=== PATIENT | male | born 1940 | race Caucasian/White ===

== ENCOUNTER 2019-12-15 08:21 | Inpatient (IN) | payer MEDICARE ==
[~2019-12-15] VITALS: Ht 185.4 cm; Wt 101.3 kg
[~2019-12-15 08:21] MED LIST: ALLO100 PO; ASPI81EC PO; ATOR20 PO; FERSU300 PO; LANOXIN125 MCG PO; LOSA25 PO; METO50ER PO; RANI150 PO; WARF4 PO
[2019-12-15 09:06] LABS: BASOPHILS ABSOLUTE AUTO 0.14 K/mm3 (0.00-0.23); BASOPHILS PERCENT AUTO 1 % (0-2); EOSINOPHILS ABSOLUTE AUTO 0.05 K/mm3 (0.00-0.68); EOSINOPHILS PERCENT AUTO 1 % (0-6); Hematocrit 38.1 % (37.0-53.0); Hemoglobin 12.2 g/dL (13.5-17.5); IMMATURE GRAN ABSOLUTE AUTO 0.17 K/mm3 (0.00-0.10); IMMATURE GRAN PERCENT AUTO 2 % (0-1); LYMPHOCYTES ABSOLUTE AUTO 1.22 K/mm3 (0.84-5.20); LYMPHOCYTES PERCENT AUTO 12 % (21-46); MONOCYTES ABSOLUTE AUTO 1.84 K/mm3 (0.16-1.47); MONOCYTES PERCENT AUTO 18 % (4-13); Mean Corpuscular HGB 29.3 pg (26.0-34.0); Mean Corpuscular Volume 92 fL (80-100); Mean Platelet Volume 9.9 fL (9.1-12.4); NEUTROPHILS ABSOLUTE AUTO 6.63 K/mm3 (1.96-9.15); NEUTROPHILS PERCENT AUTO 66 % (41-73); Platelet Count 125 K/mm3 (150-400); RDW Coefficient Variation 18.1 % (11.7-14.2); RDW Standard Deviation 59.5 fL (35.1-46.3); Red Blood Cell Count 4.16 M/mm3 (4.30-5.90); White Blood Cell Count 10.05 K/mm3 (4.00-11.30)
[2019-12-15 09:24] LABS: Alanine Aminotransfer (ALT/SGP 29 U/L (12-78); Albumin, Blood 3.3 g/dL (3.4-5.0); Albumin/Globulin Ratio 0.7 (0.8-1.8); Alk Phos 142 U/L (50-136); Anion Gap 5 mmol/L (6-16); Aspartate Aminotrans (AST/SGOT 28 U/L (12-37); Bilirubin, Total 1.6 mg/dL (0.1-1.0); Blood Urea Nitrogen 15 mg/dL (8-24); Bun/Creatinine Ratio 16.4 (12.0-20.0); CO2, Blood 27 mmol/L (21-32); Calcium, Blood 9.8 mg/dL (8.5-10.1); Chloride, Blood 106 mmol/L (98-108); Creatinine, Blood 0.91 mg/dL (0.60-1.20); Globulin, Blood 4.8 g/dL (2.2-4.0); Glomerular Filtration Rate >60 (60-); Glucose, Blood 155 mg/dL (70-99); Potassium, Blood 3.8 mmol/L (3.5-5.5); Sodium, Blood 138 mmol/L (136-145); Total Protein, Blood 8.1 g/dL (6.4-8.2)
[2019-12-15 09:33] LABS: International Normalized Ratio 3.28; Prothrombin Time Results 32.8 Sec (9.7-11.5)
[2019-12-15] MEDS ORDERED: ALLO300 PO (12:11)
[2019-12-15] MEDS ORDERED: PANTOPRAZOLE SO40 M2 PO (12:11)
[2019-12-15] MEDS ORDERED: WARF4 PO (12:13)
[2019-12-15 12:14] LABS: Adenovirus Not Detected (NOT DETECT); Bordetella pertussis Not Detected (NOT DETECT); Chlamydophila pneumoniae Not Detected (NOT DETECT); Coronavirus 229E Not Detected (NOT DETECT); Coronavirus HKU1 Not Detected (NOT DETECT); Coronavirus NL63 Not Detected (NOT DETECT); Coronavirus OC43 Not Detected (NOT DETECT); Human Metapneumovirus Not Detected (NOT DETECT); Human Rhinovirus/Enterovirus Not Detected (NOT DETECT); Influenza A/2009-H1 Not Detected (NOT DETECT); Influenza A/H1 Not Detected (NOT DETECT); Influenza A/H3 Not Detected (NOT DETECT); Influenza B Not Detected (NOT DETECT); Mycoplasma pneumoniae Not Detected (NOT DETECT); Parainfluenza Virus 1 Not Detected (NOT DETECT); Parainfluenza Virus 2 Not Detected (NOT DETECT); Parainfluenza Virus 3 Not Detected (NOT DETECT); Parainfluenza Virus 4 Not Detected (NOT DETECT); Respiratory Syncytial Virus Not Detected (NOT DETECT); SARS-Cov-2 (COVID-19), BioFire Not Detected (NOT DETECT)
[2019-12-15] MEDS ORDERED: METO50ER PO (13:50)
[2019-12-15] MEDS ORDERED: VITAMIN C 500500 MG PO (13:52)
--- NOTE | 2019-12-15 14:08 | NUR ---
PT ARRIVED IN THE UNIT FROM [facility] VIA STRETCHER PT WAS ABLE TO STAND AND TRANSFER. REPORT RECEIVED FROM CONNOR MCKENNA. PT IS HERE D/T HEMOPTYSIS WITH COUGH. PT ALERT AND ORIENTED X4, PLEASANT AND COOPERATIVE. VITALS HRR 100% PACED VENTRICULAR RHYTHM 65, BP SYSTOLIC 125, SATS ABOVE 95% ON 5L OF O2, AFEBRILE. PT IN BED RESTING AT THIS TIME, DENIES ANY PAIN, CURRENTLY NPO. CALL LIGHTS WITHIN REACH, WILL MONITOR
--- NOTE | 2019-12-15 17:57 | NUR ---
PT SUMMARY: VITALS REMAINED STABLE. PULMO CONSULT CALLED IN TO DR SHAW TODAY. PER DR JENSEN PT FOR POSS BRONCHOSCOPY IN AM, NPO AT MIDNIGHT. PT RECEIVED FLU SHOT ON LEFT DELTOID. PT STILL HAS BLOOD IN THE SPUTUM SAMPLE SENT TO LAB. NO ACUTE CHANGE. ON 5L OF O2 SATS REMAINED ABOVE 95%. ABLE TO MAKE NEEDS KNOWN. CALL LIGHTS IN REACH WILL REPORT TO ONCOMING SHIFT
[2019-12-16 00:15] LABS: Source, Urine Clean Catch
[2019-12-16 00:17] LABS: Bilirubin, Urine Neg (Neg); Blood, Urine 1+ (Neg); Glucose Qualitative, Urine Neg (Neg); Ketones, Urine Neg (Neg); Leukocyte Esterase, Urine 1+ (Neg); Nitrite, Urine Neg (Neg); Protein, Urine 2+ (Neg); Urobilinogen, Urine NORM (Normal)
[2019-12-16 00:35] LABS: Appearance, Urine Clear (Clear); Bacteria Not Seen /hpf; Color, Urine Yellow (P-Yellow); Red Blood Cells, Urine 0-2 /hpf (0-2); Squamous Epithelial Cells Not Seen /hpf (Few); White Blood Cells, Urine Rare /hpf (0-5)
[2019-12-16 04:31] LABS: BASOPHILS ABSOLUTE AUTO 0.02 K/mm3 (0.00-0.23); BASOPHILS PERCENT AUTO 0 % (0-2); EOSINOPHILS PERCENT AUTO 0 % (0-6); Hematocrit 36.2 % (37.0-53.0); Hemoglobin 11.7 g/dL (13.5-17.5); IMMATURE GRAN ABSOLUTE AUTO 0.08 K/mm3 (0.00-0.10); IMMATURE GRAN PERCENT AUTO 1 % (0-1); LYMPHOCYTES ABSOLUTE AUTO 0.61 K/mm3 (0.84-5.20); LYMPHOCYTES PERCENT AUTO 7 % (21-46); MONOCYTES ABSOLUTE AUTO 0.39 K/mm3 (0.16-1.47); MONOCYTES PERCENT AUTO 4 % (4-13); Mean Corpuscular HGB 29.8 pg (26.0-34.0); Mean Corpuscular HGB Conc 32.3 g/dL (31.5-36.5); Mean Corpuscular Volume 92 fL (80-100); Mean Platelet Volume 10.5 fL (9.1-12.4); NEUTROPHILS ABSOLUTE AUTO 7.68 K/mm3 (1.96-9.15); NEUTROPHILS PERCENT AUTO 88 % (41-73); Platelet Count 111 K/mm3 (150-400); RDW Coefficient Variation 18.1 % (11.7-14.2); RDW Standard Deviation 59.5 fL (35.1-46.3); Red Blood Cell Count 3.93 M/mm3 (4.30-5.90); White Blood Cell Count 8.78 K/mm3 (4.00-11.30)
[2019-12-16 04:52] LABS: Anion Gap 6 mmol/L (6-16); Blood Urea Nitrogen 21 mg/dL (8-24); Bun/Creatinine Ratio 24.4 (12.0-20.0); CO2, Blood 26 mmol/L (21-32); Calcium, Blood 9.7 mg/dL (8.5-10.1); Chloride, Blood 106 mmol/L (98-108); Creatinine, Blood 0.86 mg/dL (0.60-1.20); Glomerular Filtration Rate >60 (60-); Glucose, Blood 158 mg/dL (70-99); Potassium, Blood 4.7 mmol/L (3.5-5.5); Sodium, Blood 138 mmol/L (136-145)
--- NOTE | 2019-12-16 05:40 | NUR ---
SHIFT SUMMARY NO ACUTE CHANGES THIS SHIFT. PT A&OX4, PLEASANT AND COOPERATIVE. SP02 >92% ON 5L NC. OCCASIONAL COUGH, PRODUCING MODERATE AMOUNTS OF CLEAR/WHITE SPUTUM TINGED WITH PINK. TELEMETRY READS 100% VENTRICULARLY PACED, HR 60'S. DR SHAW IN TO SEE PT APPROX 1999, ORDERED ECHO IN AM, CHANGING PT FROM NPO TO REGULAR DIET. ANTIBIOTICS INFUSED PER EMAR. CALL LIGHT WITHIN REACH. WILL CONTINUE TO MONITOR UNTIL END OF SHIFT.
--- NOTE | 2019-12-16 08:00 | NUR ---
pt laying in bed awake a/ox3, pleasant and cooperative with care, states he is feeling better, is currently on 5 liters 02 via n/c, resp even and unlabored, no cough noted, he reports the hemoptosis is much less than it was, denies pain, or sob at rest, lungs are clear in upper judge, a bit course in bases, hrr, tele in placed is vpaced with sr underlying, no edema noted, ppp+2, cap refill <3sec, vs stable, afebrile, iv site is clear and patent, btx4, abd flat soft nontender, voids without diff, skin c/w/d, maew, river, call light in reach.
--- NOTE | 2019-12-16 09:55 | NUR ---
ambulated pt per request, took him on r/a with 02 available, he dropped to 82% turned him up to 6 liters to recover, took a while for him to come back up, he states he only got a littel sob. notified RT, left [facility] [place] to call nurse. son in room. call light in reach.
--- NOTE | 2019-12-16 12:48 | NUR ---
pt resting in bed is currently on 3 liters 02 via n/c, echo just complete. Dr. Watson was in to see him. call light in reach.
--- NOTE | 2019-12-16 15:13 | NUR ---
Echocardiogram performed by Yadi Mobley under my supervision.
--- NOTE | 2019-12-16 17:28 | NUR ---
PT CONTINUES ON 3 LITERS 02 VIA N/C AT REST, NO COMPLAINTS OR FURTHER CHANGES THIS SHIFT. CALL LIGHT IN REACH.
[2019-12-17 04:35] LABS: BASOPHILS ABSOLUTE AUTO 0.03 K/mm3 (0.00-0.23); BASOPHILS PERCENT AUTO 0 % (0-2); EOSINOPHILS ABSOLUTE AUTO 0.01 K/mm3 (0.00-0.68); EOSINOPHILS PERCENT AUTO 0 % (0-6); Hematocrit 37.8 % (37.0-53.0); IMMATURE GRAN ABSOLUTE AUTO 0.23 K/mm3 (0.00-0.10); IMMATURE GRAN PERCENT AUTO 1 % (0-1); LYMPHOCYTES ABSOLUTE AUTO 0.68 K/mm3 (0.84-5.20); LYMPHOCYTES PERCENT AUTO 4 % (21-46); MONOCYTES ABSOLUTE AUTO 3.52 K/mm3 (0.16-1.47); MONOCYTES PERCENT AUTO 22 % (4-13); Mean Corpuscular HGB 29.6 pg (26.0-34.0); Mean Corpuscular HGB Conc 31.7 g/dL (31.5-36.5); Mean Corpuscular Volume 93 fL (80-100); Mean Platelet Volume 10.3 fL (9.1-12.4); NEUTROPHILS PERCENT AUTO 72 % (41-73); Platelet Count 139 K/mm3 (150-400); RDW Coefficient Variation 18.6 % (11.7-14.2); RDW Standard Deviation 61.1 fL (35.1-46.3); Red Blood Cell Count 4.06 M/mm3 (4.30-5.90); White Blood Cell Count 16.17 K/mm3 (4.00-11.30)
[2019-12-17 04:47] LABS: Anion Gap 6 mmol/L (6-16); Blood Urea Nitrogen 28 mg/dL (8-24); Bun/Creatinine Ratio 32.1 (12.0-20.0); CO2, Blood 26 mmol/L (21-32); Calcium, Blood 9.9 mg/dL (8.5-10.1); Chloride, Blood 108 mmol/L (98-108); Creatinine, Blood 0.87 mg/dL (0.60-1.20); Glomerular Filtration Rate >60 (60-); Glucose, Blood 114 mg/dL (70-99); Phosphorus, Blood 3.5 mg/dL (2.5-4.9); Potassium, Blood 4.8 mmol/L (3.5-5.5); Sodium, Blood 140 mmol/L (136-145)
--- NOTE | 2019-12-17 06:26 | NUR ---
SHIFT SUMMARY PT IS AN 79 Y/O MALE, ADMITTED FOR HEMOPTYSIS. HE IS A&O X 4, 1PA TO THE BATHROOM PER REPORT THOUGH PT DID NOT GET OUT OF BED. NO COMPLAINTS OF ACUTE PAIN, NAUSEA OR SOB. HE IS ON 4L OF O2 VIA NC, AND TENDS TO DESAT WHILE ASLEEP. TELE SHOWED NSR C PVCS IN THE 70S. VITAL SIGNS OTHERWISE STABLE. NO ACUTE CHANGES IN PT CONDITION NOTED. WILL CONTINUE TO MONITOR AND TREAT PER EMAR UNTIL HAND OFF TO DAY SHIFT RN.
--- NOTE | 2019-12-17 09:16 | NUR ---
PT DOING WELL, HE STATES HE HAD A GOOD NIGHT, NO COMPLAINTS, HE DID REPORT HE COUGHT UP BLOOD TWICE EARLY THIS AM, BUT IS FEELING GOOD. V.S. STABLE, ATE BREAKFAST, LUNGS ARE CLEAR IN UPPER WOODY, A BIT COURSE IN BASES, RESP EVEN AND UNLABORED AT REST, HE DID GET UP TO THE BATHROOM AND DESATED TO 79% BUT IS NOT REPORTING FEELING SOB, TURNED HIM UP TO 10 LITERS, AND CALLED FOR RT TO GIVE TX. HE DID RECOVER AND WAS ABLE TO TURN HIM BACK TO 5 LITERS BEFORE I LEFT ROOM, HRR, TELE IN PLACE RUNNING PACED, NO EDEMA NOTED, IV SITE IS CLEAR AND PATENT, BTX4, ABD FLAT SOFT NONTENDER, VOIDS WITHOUT DIFF, SKIN C/W/D, LASHONDA GUPTA, CALL LIGHT IN REACH.
--- NOTE | 2019-12-17 19:05 | NUR ---
pt doing ok, no complaints, Dr. Boswell in to see him. will be here for a few more days. remains above 90 on 5 liters. call light in reach.
--- NOTE | 2019-12-17 19:45 | NUR ---
INITAL SHIFT ASSESSMENT PT IS ALERT AND ORIENTED SITTING UP IN BED. HE HAS NO COMPLAINTS AND DENIES ANY TYPE OF PAIN. HE IS NOT SOB AT REST WITH 5L N/C RUNNING. HE DOES STATE WITH ACTIVITY HE IS VERY SOB AND TAKES SOME TIME TO RECOVER. DRY COUGH WITH MINIMAL PRODUCTION NOTED AT THIS TIME. VITALS ARE STABLE AT THIS TIME. PT HAS A PATENT IV TO LEFT FA. WILL ADMINISTER MEDICATIONS ORDERED SEE EMAR. PT IS USING URINAL AND WILL CALL NEEDED FOR ASSISTANCE. OVERALL VERY PLESANT AND COOPERATIVE WITH HIS CARE.
--- NOTE | 2019-12-17 23:37 | NUR ---
SHIFT UPDATE PT IS STABLE AT THIS TIME. VITALS ARE AT BASELINE. HE HAS NO COMPLAINTS OR NEEDS AT THIS TIME. CALL LIGHT IN REACH. WILL CON'T TO MONITOR AND KEEP PT SAFE.
[2019-12-18 03:43] LABS: BASOPHILS ABSOLUTE AUTO 0.04 K/mm3 (0.00-0.23); BASOPHILS PERCENT AUTO 1 % (0-2); EOSINOPHILS ABSOLUTE AUTO 0.13 K/mm3 (0.00-0.68); EOSINOPHILS PERCENT AUTO 2 % (0-6); Hematocrit 36.9 % (37.0-53.0); Hemoglobin 11.9 g/dL (13.5-17.5); IMMATURE GRAN ABSOLUTE AUTO 0.19 K/mm3 (0.00-0.10); IMMATURE GRAN PERCENT AUTO 2 % (0-1); LYMPHOCYTES ABSOLUTE AUTO 1.11 K/mm3 (0.84-5.20); LYMPHOCYTES PERCENT AUTO 13 % (21-46); MONOCYTES ABSOLUTE AUTO 1.79 K/mm3 (0.16-1.47); MONOCYTES PERCENT AUTO 21 % (4-13); Mean Corpuscular HGB 29.8 pg (26.0-34.0); Mean Corpuscular HGB Conc 32.2 g/dL (31.5-36.5); Mean Corpuscular Volume 92 fL (80-100); Mean Platelet Volume 9.8 fL (9.1-12.4); NEUTROPHILS ABSOLUTE AUTO 5.48 K/mm3 (1.96-9.15); NEUTROPHILS PERCENT AUTO 63 % (41-73); Platelet Count 128 K/mm3 (150-400); RDW Coefficient Variation 18.6 % (11.7-14.2); RDW Standard Deviation 60.5 fL (35.1-46.3); White Blood Cell Count 8.74 K/mm3 (4.00-11.30)
[2019-12-18 03:58] LABS: Albumin, Blood 2.8 g/dL (3.4-5.0); Anion Gap 2 mmol/L (6-16); Blood Urea Nitrogen 27 mg/dL (8-24); Bun/Creatinine Ratio 32.9 (12.0-20.0); CO2, Blood 28 mmol/L (21-32); Calcium, Blood 9.1 mg/dL (8.5-10.1); Chloride, Blood 108 mmol/L (98-108); Creatinine, Blood 0.82 mg/dL (0.60-1.20); Glomerular Filtration Rate >60 (60-); Glucose, Blood 97 mg/dL (70-99); Magnesium, Blood 1.9 mg/dL (1.6-2.4); Phosphorus, Blood 2.9 mg/dL (2.5-4.9); Potassium, Blood 4.3 mmol/L (3.5-5.5); Sodium, Blood 138 mmol/L (136-145)
--- NOTE | 2019-12-18 05:26 | NUR ---
SHIFT SUMMARY PT CON'T TO BE STABLE WITH NO CHANGES FROM BASELINE. HE IS ALERT AND ORIENTED THIS AM AND SLEEPING OFF AND ON. PT CON'T TO HAVE OXYGEN AT 5L N/C. HE HAS NO COMPLAINTS THIS AM. VITALS ARE STABLE. CALL LIGHT IN REACH. WILL CON'T TO MONITOR AND KEEP PT SAFE TILL BED SIDE REPORT TO ONCOMING RN.
--- NOTE | 2019-12-18 08:47 | NUR ---
PT LAYING IN BED WATCHING TV, A/OX3, PLEASANT AND COOPERATIVE WITH CARE, FOLLOWS COMMANDS WELL, DENIES PAIN OR SOB, REPORTS HAVING A GOOD NIGHT, LUNGS ARE CLEAR IN UPPER WOODY, A BIT COURSE IN BASES, RESP EVEN AND UNLABORED, AT REST, NO COUGH NOTED, BUT HE REPORTS A FEW TIMES DURRING THE NIGHT HE BROUGHT UP A SMALL AMOUNT OF BLOOD, IS CURRENTLY ON 5 LITERS, NEEDS TO INCREASE THIS WHEN AMBULATING, HRR, TELE IN PLACE RUNNING A PACED RHYTHM IN THE 60'S, NO EDEMA NOTED, PPP+2, CAP REFILL <3SEC, VS STABLE, AFEBRILE, IV SITE IS CLEAR AND PATENT, BTX4, ABD FLAT SOFT NONTENDER, VOIDS WITHOUT DIFF VIA URINAL, SKIN C/W/D, LASHONDA GUPTA CALL LIGHT IN REACH.
--- NOTE | 2019-12-18 12:30 | NUR ---
PT DOING OK, NO COMPLAINTS, SLEEPS WHEN LEFT UNDISTURBED, NO COMPLAINTS, V.S. STABLE, AFEBRILE, CALL LIGHT IN REACH.
--- NOTE | 2019-12-18 17:39 | NUR ---
pt some improved from yesterday, continues to desat with activity, but is recovering faster, denies any complaints or needs. call light in reach.
[2019-12-19 03:43] LABS: BASOPHILS ABSOLUTE AUTO 0.09 K/mm3 (0.00-0.23); BASOPHILS PERCENT AUTO 1 % (0-2); EOSINOPHILS ABSOLUTE AUTO 0.25 K/mm3 (0.00-0.68); EOSINOPHILS PERCENT AUTO 3 % (0-6); Hematocrit 37.2 % (37.0-53.0); Hemoglobin 12.1 g/dL (13.5-17.5); IMMATURE GRAN ABSOLUTE AUTO 0.33 K/mm3 (0.00-0.10); IMMATURE GRAN PERCENT AUTO 4 % (0-1); LYMPHOCYTES ABSOLUTE AUTO 1.17 K/mm3 (0.84-5.20); LYMPHOCYTES PERCENT AUTO 13 % (21-46); MONOCYTES PERCENT AUTO 19 % (4-13); Mean Corpuscular HGB 29.9 pg (26.0-34.0); Mean Corpuscular HGB Conc 32.5 g/dL (31.5-36.5); Mean Corpuscular Volume 92 fL (80-100); Mean Platelet Volume 9.9 fL (9.1-12.4); NEUTROPHILS PERCENT AUTO 60 % (41-73); Platelet Count 131 K/mm3 (150-400); RDW Coefficient Variation 18.3 % (11.7-14.2); RDW Standard Deviation 60.5 fL (35.1-46.3); Red Blood Cell Count 4.05 M/mm3 (4.30-5.90); White Blood Cell Count 8.84 K/mm3 (4.00-11.30)
[2019-12-19 04:08] LABS: Albumin, Blood 2.7 g/dL (3.4-5.0); Anion Gap 1 mmol/L (6-16); Blood Urea Nitrogen 19 mg/dL (8-24); Bun/Creatinine Ratio 22.8 (12.0-20.0); CO2, Blood 30 mmol/L (21-32); Chloride, Blood 108 mmol/L (98-108); Creatinine, Blood 0.83 mg/dL (0.60-1.20); Glomerular Filtration Rate >60 (60-); Glucose, Blood 101 mg/dL (70-99); Magnesium, Blood 1.9 mg/dL (1.6-2.4); Phosphorus, Blood 2.6 mg/dL (2.5-4.9); Potassium, Blood 4.1 mmol/L (3.5-5.5); Sodium, Blood 139 mmol/L (136-145)
--- NOTE | 2019-12-19 06:11 | NUR ---
SUMMARY NO ACUTE CHANGES NOTED THROUGH THE NIGHT. PT REMAINS A&O X4, O2 @ 5L VIA NC, SPUTUM SAMPLE WAS SENT TO THE LAB. FINE CRACKLES NOTED IN RLL, DENIES SOB/PAIN AT REST, PT IS TOLERATING PO INTAKE, VOIDING WNL. CALL LIGHT IN REACH. WCTM
--- NOTE | 2019-12-19 17:20 | NUR ---
SHIFT SUMMARY: NO ACUTE CHANGES T/OUT SHIFT. PT CONTINUES ALERT AND ORIENTED, PACED ON MONITOR, OXYGEN AT 4.5 L/MIN. PT AMBULATED TO AND FROM RESTROOM WITH NO ACUTE DESATURATION TO OXYGEN LEVELS. DR CHAPIN IN TO SEE PT, STATES STATUS CHANGE TO MEDICAL DEPT. WILL CONTINUE TO MONITOR AND TREAT ACCORDINGLY UNTIL CHANGE OF SHIFT.
--- NOTE | 2019-12-19 19:45 | NUR ---
ASSUMED CARE RECEIVED REPORT FROM BALA BENJAMIN. PT IS LYING IN BED, ALERT AND ORIENTED X 4. HE IS ON 4.5 L NC (WITH HUMIDITY). PT HAS A PACEMAKER AND HAS BEEN VENTRICULAR-PACED (NOT 100%) RATE IS AROUND 61. BED IS LOW AND LOCKED. URINAL AT BEDSIDE. CALL LIGHT WITHIN REACH.
--- NOTE | 2019-12-20 05:54 | NUR ---
SHIFT SUMMARY PT IS ALERT AND ORIENTED X 4. HE SLEPT FOR THE MAJORITY OF THE NIGHT, NO ACUTE EVENTS. HE REMAINS ON 4-5L NC. STABLE VITALS. PACED RHYTHM WITH INTRINSIC BEATS, RATE - 61. HE HAS BEEN INDEPENDENT IN BED, REPOSITIONING SELF. BED LOW AND LOCKED. CALL LIGHT WITHIN REACH.
--- NOTE | 2019-12-20 10:09 | NUR ---
ASSUMED CARE OF PT THIS AM, RECEIVED REPORT FROM BALA JIM. AT REST, PT O2 SATS AT APPROX 94-95% WHILE ON OXYGEN AT 3L/MIN WHICH IS THE GOAL FOR DC HOME. PT TO AND FROM RESTROOM FOR SHOWER WHILE ON 3L/MIN. UPON RETURN TO BED PT DENIES FEELING SOB, BUT O2 SATS DECLINE TO 86% AND ARE SLOW TO RECOVER TO 91%. OXYGEN FLOW WAS INCREASED TO 5L/MIN. DR GARCÍA TO ROOM FOR EVAL AND NOTIFIED OF PT'S OXYGEN SATURATIONS/NEED.
--- NOTE | 2019-12-20 17:24 | NUR ---
SHIFT SUMMARY: NO ACUTE CHANGES TO PT STATUS. PT CONTINUES ON OXYGEN AT 3.5/MIN AT THIS TIME, O2 SATS MAINTAINING 90-92% WHILE AT REST. PT DENIES SOB. PLAN FOR O2 HOME EVAL ON 12/21/19. REPORT HAS BEEN GIVEN TO BALA MORENO TO RECEIVE PT IN MEDICAL DEPT.
--- NOTE | 2019-12-20 19:01 | NUR ---
TRANSFER A&O PATIENT ARRIVED TO MEDICAL UNIT ~1745. SBAR REPORT RECIEVED FROM BALA BENJAMIN AT 1710. VSS. ON 3LNC. LUNG SOUNDS DIMINISHED IN THE BASES, CLEAR OTHERWISE. HAD PRODUCTIVE COUGH WITH SMALL AMOUNT OF E[place]INAS SPUTUM, NO HEMOPTYSIS. S1 S2 HEART TONES ONLY. ZOSYN GIVEN. ALL QUESTIONS ANSWERED AND PATIENT ORIENTED TO UNIT. BED ALARM ON. PT VERBALIZED UNDERSTANDING OF FALL PREVENTION MEASURES. HOME O2 EVAL TOMORROW.
--- NOTE | 2019-12-20 23:40 | NUR ---
RESTING QUIETLY AT INTERVALS. IV ANTIBIOTICS INFUSING PER MD ORDERS - SEE MAR FOR DETAILS. DENIED PAIN. NO NOTED ACUTE DISTRESS. CALL LIGHT INR EACH.
--- NOTE | 2019-12-21 05:41 | NUR ---
SHIFT SUMMARY HAS BEEN RESTING QUIETLY WITH FEW INTERRUPTIONS. IV ANTIBIOTICS INFUSED PER MD ORDERS - SEE MAR FOR DETAILS. DENIED PAIN OR DIETRESS DURING ROUNDINGS. CALL LIGHT IN REACH.
--- NOTE | 2019-12-21 07:38 | NUR ---
CALL LIGHT IN REACH.
[2019-12-21] MEDS ORDERED: ALBU90OI INH (11:49)
[2019-12-21] MEDS ORDERED: AMOCLA875 PO (11:52)
[2019-12-21] MEDS ORDERED: ASPI81CH PO (11:53)
--- NOTE | 2019-12-21 14:36 | NUR ---
DISCHARGE DISCHARGE MEDICATIONS AND INSTRUCTIONS EXPLAINED TO PATIENT AND PATIENT'S SON. THEY STATED UNDERSTANDING. [facility] PROVIDED PORTABLE 02 AND WILL MEET PATIENT AT HOME WITH SUPPLIES. IV REMOVED WITHOUT DIFFICULTY. BELONGINGS WITH PATIENT. PATIENT TRANFERED TO PRIVATE VEHICLE VIA WHEELCHAIR.
== END 2019-12-21 14:33 | disposition home or self-care (01) | DRG 177 ==
LOC: ER 08:21 → PCU 12:15 → MEDS 12-20 17:38
PROVIDERS: Emergency Medicine; Internal Medicine Critical Care Medicine; Internal Medicine Gastroenterology; ADMIT Internal Medicine
DX: J69.0 Pneumonitis due to inhalation of food and vomit (principal); J96.21 Acute and chronic respiratory failure with hypoxia; I48.19 Other persistent atrial fibrillation; I50.22 Chronic systolic (congestive) heart failure; R04.2 Hemoptysis; J44.1 Chronic obstructive pulmonary disease with (acute) exacerbation; J84.112 Idiopathic pulmonary fibrosis; Z20.828 Contact with and (suspected) exposure to other viral communicable diseases; J84.9 Interstitial pulmonary disease, unspecified; I11.0 Hypertensive heart disease with heart failure; I25.10 Atherosclerotic heart disease of native coronary artery without angina pectoris; I27.20 Pulmonary hypertension, unspecified; J47.9 Bronchiectasis, uncomplicated; Z87.01 Personal history of pneumonia (recurrent); Z87.891 Personal history of nicotine dependence; I35.0 Nonrheumatic aortic (valve) stenosis; K21.9 Gastro-esophageal reflux disease without esophagitis; Z79.01 Long term (current) use of anticoagulants; K44.9 Diaphragmatic hernia without obstruction or gangrene; Z95.0 Presence of cardiac pacemaker; E78.5 Hyperlipidemia, unspecified; Z95.4 Presence of other heart-valve replacement
CPT/HCPCS: 0202U; 36415; 71045; 71046; 71260; 80048; 80053; 80069; 81001; 83605; 83735; 84145; 85025; 85610; 85730; 87040; 87070; 87205; 87449; 93005; 93010; 93306; 94640; 94644; 94761; 94762; 96365; 96367; 96375; 97116; 97161; 99285-25; A9270; A9270-GY; G0008; J0456; J0696; J1956; J2543; J2920; J2930; J3370; J7050; Q2038; Q9967; U0003

== ENCOUNTER 2019-12-26 09:07 | Emergency (ER) | payer MEDICARE ==
[~2019-12-26] VITALS: Ht 185.4 cm; Wt 102.1 kg
[~2019-12-26 09:07] MED LIST changes: +ALBU90OI INH; +ALLO300 PO; +AMOCLA875 PO; +ASPI81CH PO; +PANTOPRAZOLE SO40 M2 PO; +VITAMIN C 500500 MG PO
[2019-12-26] MEDS ORDERED: HYDR1TAB94 PO (12:35)
== END 2019-12-26 13:04 | disposition home or self-care (01) ==
LOC: ER 09:07
DX: M25.461 Effusion, right knee (principal); I11.0 Hypertensive heart disease with heart failure; I50.9 Heart failure, unspecified; I25.10 Atherosclerotic heart disease of native coronary artery without angina pectoris; K21.9 Gastro-esophageal reflux disease without esophagitis; Z79.82 Long term (current) use of aspirin; Z95.5 Presence of coronary angioplasty implant and graft; Z79.899 Other long term (current) drug therapy; X50.1XXA Overexertion from prolonged static or awkward postures, initial encounter
CPT/HCPCS: 29505; 73562-RT; 99283-25

== ENCOUNTER 2020-02-04 12:38 | Inpatient (IN) | payer MEDICARE ==
[~2020-02-04] VITALS: Ht 182.9 cm; Wt 94.2 kg
[~2020-02-04 12:38] MED LIST changes: +HYDR1TAB94 PO
[2020-02-04] MEDS ORDERED: ELIQUIS5 MG PO (13:57)
[2020-02-04] MEDS ORDERED: TORSE20 PO (14:00)
[2020-02-04] MEDS ORDERED: POTA10T PO (14:01)
--- NOTE | 2020-02-04 17:14 | NUR ---
PT HAS BEEN SETTLED INTO ROOM. PT IS INDEPENDENT AND USES CALL LIGHT APPROPRIATELY. PT HAS BEEN RESTING IN BED SINCE 1300 WHEN HE ARRIVED. NO DISTRESS NOTED 2L O2 AT THIS. PT DENIES ANY PAIN WILL CONTINUE TO MONITOR.
[2020-02-04 22:52] LABS: Adenovirus Not Detected (NOT DETECT); Bordetella pertussis Not Detected (NOT DETECT); Chlamydophila pneumoniae Not Detected (NOT DETECT); Coronavirus 229E Not Detected (NOT DETECT); Coronavirus HKU1 Not Detected (NOT DETECT); Coronavirus NL63 Not Detected (NOT DETECT); Coronavirus OC43 Not Detected (NOT DETECT); Human Metapneumovirus Not Detected (NOT DETECT); Human Rhinovirus/Enterovirus Not Detected (NOT DETECT); Influenza A/2009-H1 Not Detected (NOT DETECT); Influenza A/H1 Not Detected (NOT DETECT); Influenza A/H3 Not Detected (NOT DETECT); Influenza B Not Detected (NOT DETECT); Mycoplasma pneumoniae Not Detected (NOT DETECT); Parainfluenza Virus 1 Not Detected (NOT DETECT); Parainfluenza Virus 2 Not Detected (NOT DETECT); Parainfluenza Virus 3 Not Detected (NOT DETECT); Parainfluenza Virus 4 Not Detected (NOT DETECT); Respiratory Syncytial Virus Not Detected (NOT DETECT); SARS-Cov-2 (COVID-19), BioFire Not Detected (NOT DETECT)
--- NOTE | 2020-02-05 04:12 | NUR ---
SHIFT SUMMARY- PT. A&O, PLEASANT, AND COOPERATIVE WITH CARE. HAD NO ACUTE EVENTS OVERNIGHT. ASLEEP MOST OF THE NIGHT, NO APPARENT DISTRESS NOTED. NO COMPLAINTS OF PAIN OR DISCOMFORT. VSS. DENIES ANY NEEDS AT THIS TIME. CALL LIGHT WITHIN REACH AND SIDE RAILS UPX2. WILL CONT TO MONITOR.
[2020-02-05 05:38] LABS: BASOPHILS ABSOLUTE AUTO 0.14 K/mm3 (0.00-0.23); BASOPHILS PERCENT AUTO 2 % (0-2); EOSINOPHILS ABSOLUTE AUTO 0.26 K/mm3 (0.00-0.68); EOSINOPHILS PERCENT AUTO 4 % (0-6); Hematocrit 36.4 % (37.0-53.0); Hemoglobin 11.3 g/dL (13.5-17.5); IMMATURE GRAN ABSOLUTE AUTO 0.16 K/mm3 (0.00-0.10); IMMATURE GRAN PERCENT AUTO 2 % (0-1); LYMPHOCYTES ABSOLUTE AUTO 1.56 K/mm3 (0.84-5.20); LYMPHOCYTES PERCENT AUTO 23 % (21-46); MONOCYTES ABSOLUTE AUTO 1.28 K/mm3 (0.16-1.47); MONOCYTES PERCENT AUTO 19 % (4-13); Mean Corpuscular HGB 29.4 pg (26.0-34.0); Mean Corpuscular Volume 95 fL (80-100); Mean Platelet Volume 10.6 fL (9.1-12.4); NEUTROPHILS PERCENT AUTO 50 % (41-73); Platelet Count 112 K/mm3 (150-400); RDW Coefficient Variation 20.5 % (11.7-14.2); RDW Standard Deviation 68.9 fL (35.1-46.3); Red Blood Cell Count 3.85 M/mm3 (4.30-5.90)
[2020-02-05 06:11] LABS: Alanine Aminotransfer (ALT/SGP 32 U/L (12-78); Albumin, Blood 2.8 g/dL (3.4-5.0); Albumin/Globulin Ratio 0.6 (0.8-1.8); Alk Phos 126 U/L (50-136); Anion Gap 3 mmol/L (6-16); Aspartate Aminotrans (AST/SGOT 25 U/L (12-37); Bilirubin, Total 1.1 mg/dL (0.1-1.0); Blood Urea Nitrogen 24 mg/dL (8-24); Bun/Creatinine Ratio 20.9 (12.0-20.0); CO2, Blood 33 mmol/L (21-32); Calcium, Blood 9.3 mg/dL (8.5-10.1); Chloride, Blood 103 mmol/L (98-108); Creatinine, Blood 1.15 mg/dL (0.60-1.20); Globulin, Blood 4.9 g/dL (2.2-4.0); Glomerular Filtration Rate >60 (60-); Glucose, Blood 94 mg/dL (70-99); Potassium, Blood 4.6 mmol/L (3.5-5.5); Sodium, Blood 139 mmol/L (136-145); Total Protein, Blood 7.7 g/dL (6.4-8.2)
[2020-02-05] MEDS ORDERED: AZIT250 PO (14:11)
[2020-02-05] MEDS ORDERED: Prednisone10 MG PO (14:11)
[2020-02-05] MEDS ORDERED: GUAI600T33 PO (14:11)
--- NOTE | 2020-02-05 15:17 | NUR ---
DISCHARGE: PT DC TO HOME AT THIS TIME WITH FAMILY. IV DC'D WNL. VERBALIZED UNDERSTANDING OF INSTRUCTIONS. MEDICATIONS FAXED TO PT PHARMACY. PT LEFT VIA WHEELCHAIR WITH BELONGINGS AND HOME 02.
== END 2020-02-05 15:16 | disposition home or self-care (01) | DRG 177 ==
LOC: MEDS 12:38
PROVIDERS: Family Medicine; ADMIT Internal Medicine
DX: J69.0 Pneumonitis due to inhalation of food and vomit (principal); J96.21 Acute and chronic respiratory failure with hypoxia; N17.9 Acute kidney failure, unspecified; J84.10 Pulmonary fibrosis, unspecified; K44.9 Diaphragmatic hernia without obstruction or gangrene; Z95.0 Presence of cardiac pacemaker; I49.5 Sick sinus syndrome; I35.0 Nonrheumatic aortic (valve) stenosis; K22.4 Dyskinesia of esophagus; I10 Essential (primary) hypertension; R62.7 Adult failure to thrive; K21.9 Gastro-esophageal reflux disease without esophagitis; J47.9 Bronchiectasis, uncomplicated; J45.909 Unspecified asthma, uncomplicated; Z99.81 Dependence on supplemental oxygen
CPT/HCPCS: 0202U; 36415; 80053; 85025; 87040; 87070; 87205; A9270-GY; J0456; J2543; J7050

== ENCOUNTER 2020-06-03 19:47 | Emergency (ER) | payer MEDICARE ==
[~2020-06-03] VITALS: Ht 185.4 cm; Wt 97.5 kg
[~2020-06-03 19:47] MED LIST changes: +AZIT250 PO; +ELIQUIS5 MG PO; +GUAI600T33 PO; +POTA10T PO; +Prednisone10 MG PO; +TORSE20 PO
[2020-06-03 21:08] LABS: BASOPHILS ABSOLUTE AUTO 0.09 K/mm3 (0.00-0.23); BASOPHILS PERCENT AUTO 1 % (0-2); EOSINOPHILS ABSOLUTE AUTO 0.11 K/mm3 (0.00-0.68); EOSINOPHILS PERCENT AUTO 2 % (0-6); Hematocrit 33.6 % (37.0-53.0); Hemoglobin 10.8 g/dL (13.5-17.5); IMMATURE GRAN ABSOLUTE AUTO 0.09 K/mm3 (0.00-0.10); IMMATURE GRAN PERCENT AUTO 1 % (0-1); LYMPHOCYTES ABSOLUTE AUTO 1.46 K/mm3 (0.84-5.20); LYMPHOCYTES PERCENT AUTO 20 % (21-46); MONOCYTES ABSOLUTE AUTO 1.44 K/mm3 (0.16-1.47); MONOCYTES PERCENT AUTO 19 % (4-13); Mean Corpuscular HGB Conc 32.1 g/dL (31.5-36.5); Mean Corpuscular Volume 97 fL (80-100); Mean Platelet Volume 10.8 fL (9.1-12.4); NEUTROPHILS ABSOLUTE AUTO 4.27 K/mm3 (1.96-9.15); NEUTROPHILS PERCENT AUTO 57 % (41-73); Platelet Count 92 K/mm3 (150-400); RDW Coefficient Variation 17.2 % (11.7-14.2); Red Blood Cell Count 3.48 M/mm3 (4.30-5.90); White Blood Cell Count 7.46 K/mm3 (4.00-11.30)
[2020-06-03 21:12] LABS: Alanine Aminotransfer (ALT/SGP 34 U/L (12-78); Albumin, Blood 3.4 g/dL (3.4-5.0); Albumin/Globulin Ratio 0.7 (0.8-1.8); Alk Phos 161 U/L (50-136); Anion Gap 4 mmol/L (6-16); Aspartate Aminotrans (AST/SGOT 28 U/L (12-37); Bilirubin, Total 1.1 mg/dL (0.1-1.0); Blood Urea Nitrogen 19 mg/dL (8-24); Bun/Creatinine Ratio 21.8 (12.0-20.0); CO2, Blood 31 mmol/L (21-32); Calcium, Blood 9.7 mg/dL (8.5-10.1); Chloride, Blood 102 mmol/L (98-108); Creatinine, Blood 0.87 mg/dL (0.60-1.20); Globulin, Blood 4.9 g/dL (2.2-4.0); Glomerular Filtration Rate >60 (60-); Glucose, Blood 125 mg/dL (70-99); Potassium, Blood 4.4 mmol/L (3.5-5.5); Sodium, Blood 137 mmol/L (136-145); Total Protein, Blood 8.3 g/dL (6.4-8.2)
[2020-07-17] MEDS ORDERED: LOSA25 PO (08:18)
[2020-07-17] MEDS ORDERED: MUCINEX DM PO (14:48)
[2020-07-17] MEDS ORDERED: METO50ER PO (14:50)
[2020-07-17] MEDS ORDERED: Vitamin C100 M1 PO (14:51)
[2020-07-19] MEDS ORDERED: FURO40 PO (15:57)
[2020-07-19] MEDS ORDERED: DIABETIC T100 MG/5 M PO (15:57)
[2020-09-22] MEDS ORDERED: POTA10T PO (15:03)
== END 2020-06-03 23:01 | disposition home or self-care (01) ==
LOC: ER 19:47
PROVIDERS: Physician Assistant
DX: R04.0 Epistaxis (principal); Z79.899 Other long term (current) drug therapy; Z79.01 Long term (current) use of anticoagulants
CPT/HCPCS: 36415; 71046; 80053; 83880; 84484; 85025; 93005; 93010; 99284-25

== ENCOUNTER 2020-07-26 11:20 | Emergency (ER) | payer MEDICARE ==
[~2020-07-26] VITALS: Ht 182.9 cm; Wt 99.8 kg
[~2020-07-26 11:20] MED LIST changes: +DIABETIC T100 MG/5 M PO; +FURO40 PO; +MUCINEX DM PO; +Vitamin C100 M1 PO
[2020-07-26 12:30] LABS: BASOPHILS ABSOLUTE AUTO 0.09 K/mm3 (0.00-0.23); BASOPHILS PERCENT AUTO 1 % (0-2); EOSINOPHILS ABSOLUTE AUTO 0.06 K/mm3 (0.00-0.68); EOSINOPHILS PERCENT AUTO 0 % (0-6); Hematocrit 38.7 % (37.0-53.0); Hemoglobin 12.3 g/dL (13.5-17.5); IMMATURE GRAN ABSOLUTE AUTO 0.12 K/mm3 (0.00-0.10); IMMATURE GRAN PERCENT AUTO 1 % (0-1); LYMPHOCYTES ABSOLUTE AUTO 1.42 K/mm3 (0.84-5.20); LYMPHOCYTES PERCENT AUTO 11 % (21-46); MONOCYTES ABSOLUTE AUTO 1.93 K/mm3 (0.16-1.47); MONOCYTES PERCENT AUTO 14 % (4-13); Mean Corpuscular HGB 30.8 pg (26.0-34.0); Mean Corpuscular HGB Conc 31.8 g/dL (31.5-36.5); Mean Corpuscular Volume 97 fL (80-100); Mean Platelet Volume 10.1 fL (9.1-12.4); NEUTROPHILS ABSOLUTE AUTO 9.87 K/mm3 (1.96-9.15); NEUTROPHILS PERCENT AUTO 73 % (41-73); Platelet Count 137 K/mm3 (150-400); RDW Coefficient Variation 16.1 % (11.7-14.2); RDW Standard Deviation 58.2 fL (35.1-46.3); Red Blood Cell Count 3.99 M/mm3 (4.30-5.90); White Blood Cell Count 13.49 K/mm3 (4.00-11.30)
[2020-07-26 12:49] LABS: Alanine Aminotransfer (ALT/SGP 44 U/L (12-78); Albumin, Blood 3.4 g/dL (3.4-5.0); Albumin/Globulin Ratio 0.6 (0.8-1.8); Alk Phos 151 U/L (50-136); Anion Gap 2 mmol/L (6-16); Aspartate Aminotrans (AST/SGOT 36 U/L (12-37); Bilirubin, Total 1.1 mg/dL (0.1-1.0); Blood Urea Nitrogen 21 mg/dL (8-24); Bun/Creatinine Ratio 23.9 (12.0-20.0); CO2, Blood 35 mmol/L (21-32); Calcium, Blood 9.8 mg/dL (8.5-10.1); Chloride, Blood 99 mmol/L (98-108); Creatinine, Blood 0.88 mg/dL (0.60-1.20); Globulin, Blood 5.6 g/dL (2.2-4.0); Glomerular Filtration Rate >60 (60-); Glucose, Blood 136 mg/dL (70-99); Potassium, Blood 4.4 mmol/L (3.5-5.5); Sodium, Blood 136 mmol/L (136-145); Troponin I <0.015 ng/mL (0.000-0.040)
[2020-09-22] MEDS ORDERED: POTA10T PO (15:03)
== END 2020-07-26 16:51 | disposition home or self-care (01) ==
LOC: ER 11:20
PROVIDERS: Physician Assistant
DX: R07.9 Chest pain, unspecified (principal); K21.9 Gastro-esophageal reflux disease without esophagitis; I48.91 Unspecified atrial fibrillation; I10 Essential (primary) hypertension; E78.5 Hyperlipidemia, unspecified; I25.10 Atherosclerotic heart disease of native coronary artery without angina pectoris; Z95.0 Presence of cardiac pacemaker; Z88.8 Allergy status to other drugs, medicaments and biological substances; Z79.01 Long term (current) use of anticoagulants; Z79.899 Other long term (current) drug therapy
CPT/HCPCS: 36415; 71046; 80053; 83880; 84484; 85025; 93005; 93010; 99285-25

== ENCOUNTER 2020-09-25 06:31 | Day surgery (SDC) | payer MEDICARE ==
[~2020-09-25] VITALS: Ht 182.9 cm; Wt 95.7 kg
--- NOTE | 2020-09-25 10:34 | NUR ---
TO RECOVERY ROOM VIA WHEELCHAIR. IV SITE RIGHT IJ DRY AND INTACT. PRESSURE DRESSING ON LEFT INCISION DRY AND INTACT. DENIES INCISIONAL PAIN AT THIS TIME
--- NOTE | 2020-09-25 10:36 | NUR ---
ANCEF 1 GM IV GIVEN.
[2020-09-25] MEDS ORDERED: CEPH500 PO (10:52)
--- NOTE | 2020-09-25 12:10 | NUR ---
C/O 6/[address] STEARNS HERE. ORDERS NOTED.
[2020-09-25] MEDS ORDERED: Percocet 5-3251 EACH PO (13:38)
--- NOTE | 2020-09-25 13:50 | NUR ---
INCISIONAL PAIN MINIMAL AFTER PAIN MED.
--- NOTE | 2020-09-25 14:09 | NUR ---
DRESSING REMOVED FROM RIGHT IJ SITE. BANDAID APPLIED. ADDITIONAL PRESSURE DRESSING APPLIED TO SITE.
--- NOTE | 2020-09-25 14:15 | NUR ---
DRESSING FOR DISCHARGE.
--- NOTE | 2020-09-25 14:15 | NUR ---
DRESSED FOR DISCHARGE. DISCHARGE INSTRUCTIONS GIVEN WITH VERBAL AND WRITTEN UNDERSTANDING. INSTRUCTIONS GIVEN TO SON WELL.
--- NOTE | 2020-09-25 14:20 | NUR ---
IV REMOVED INTACT. 2X2, COBAN AND MANUAL PRESSURE APPLIED.
--- NOTE | 2020-09-25 14:30 | NUR ---
DISCHARGED HOME VIA WHEELCHAIR. SON DRIVING
== END 2020-09-25 15:39 | disposition home or self-care (01) ==
LOC: MHTC 06:31
DX: Z45.010 Encounter for checking and testing of cardiac pacemaker pulse generator [battery] (principal); I49.5 Sick sinus syndrome; I48.11 Longstanding persistent atrial fibrillation; I11.0 Hypertensive heart disease with heart failure; I25.10 Atherosclerotic heart disease of native coronary artery without angina pectoris; E78.5 Hyperlipidemia, unspecified; K21.9 Gastro-esophageal reflux disease without esophagitis; I50.9 Heart failure, unspecified; Z79.01 Long term (current) use of anticoagulants
CPT/HCPCS: 33228; 93005; 93010; 99152; 99153; A9270; C1769; C1781; C1785; C1894; J0690; J1644; J2250; J3010; J7030; J7040

== ENCOUNTER 2021-05-20 12:44 | Emergency (ER) | payer MEDICARE ==
[~2021-05-20] VITALS: Ht 182.9 cm; Wt 93.0 kg
[~2021-05-20 12:44] MED LIST changes: +CEPH500 PO; +Percocet 5-3251 EACH PO
== END 2021-05-20 15:47 | disposition home or self-care (01) ==
LOC: ER 12:44
DX: R04.0 Epistaxis (principal); K21.9 Gastro-esophageal reflux disease without esophagitis; I48.91 Unspecified atrial fibrillation; I10 Essential (primary) hypertension; E78.5 Hyperlipidemia, unspecified; M10.9 Gout, unspecified; I25.10 Atherosclerotic heart disease of native coronary artery without angina pectoris; Z87.891 Personal history of nicotine dependence; Z88.8 Allergy status to other drugs, medicaments and biological substances; Z79.899 Other long term (current) drug therapy
CPT/HCPCS: 30901; 99283-25; A9270

== ENCOUNTER 2022-04-12 05:52 | Inpatient (IN) | payer MEDICARE ==
[~2022-04-12] VITALS: Ht 182.9 cm; Wt 84.4 kg
[2022-04-12] MEDS ORDERED: OFEV150 MG PO (06:20)
[2022-04-12 06:31] LABS: BASOPHILS ABSOLUTE AUTO 0.09 K/mm3 (0.00-0.23); BASOPHILS PERCENT AUTO 1 % (0-2); EOSINOPHILS ABSOLUTE AUTO 0.01 K/mm3 (0.00-0.68); EOSINOPHILS PERCENT AUTO 0 % (0-6); Hematocrit 31.6 % (37.0-53.0); Hemoglobin 10.1 g/dL (13.5-17.5); IMMATURE GRAN ABSOLUTE AUTO 0.06 K/mm3 (0.00-0.10); IMMATURE GRAN PERCENT AUTO 1 % (0-1); LYMPHOCYTES PERCENT AUTO 10 % (21-46); MONOCYTES ABSOLUTE AUTO 1.05 K/mm3 (0.16-1.47); MONOCYTES PERCENT AUTO 9 % (4-13); Mean Corpuscular HGB 31.5 pg (26.0-34.0); Mean Corpuscular Volume 98 fL (80-100); Mean Platelet Volume 10.8 fL (9.1-12.4); NEUTROPHILS ABSOLUTE AUTO 9.31 K/mm3 (1.96-9.15); NEUTROPHILS PERCENT AUTO 79 % (41-73); Platelet Count 88 K/mm3 (150-400); RDW Coefficient Variation 17.2 % (11.7-14.2); RDW Standard Deviation 62.5 fL (35.1-46.3); Red Blood Cell Count 3.21 M/mm3 (4.30-5.90); White Blood Cell Count 11.72 K/mm3 (4.00-11.30)
[2022-04-12 06:44] LABS: Albumin, Blood 3.2 g/dL (3.4-5.0); Albumin/Globulin Ratio 0.6 (0.8-1.8); Bilirubin, Total 0.9 mg/dL (0.1-1.0); Bun/Creatinine Ratio 27.5 (12.0-20.0); Calcium, Blood 9.7 mg/dL (8.5-10.1); Creatinine, Blood 0.84 mg/dL (0.60-1.20); Globulin, Blood 5.8 g/dL (2.2-4.0); Potassium, Blood 4.2 mmol/L (3.5-5.5)
[2022-04-12 15:43] LABS: International Normalized Ratio 1.21; Prothrombin Time Results 12.5 Sec (9.7-11.5)
--- NOTE | 2022-04-12 19:20 | NUR ---
PT REPORTS PAIN IS ADEQUATELY CONTROLLED. PT AWARE OF NPO AFTER MIDNITE FOR 08 HIDA SCAN. MARGAUX SMALL AMOUNTS OF CLEAR LIQUIDS WITHOUT NAUSEA. HEPARIN GTT INFUSING AT 15 UNITS/KG/HR.
--- NOTE | 2022-04-13 02:12 | NUR ---
CALLED DR BRAVO FOR NON OPIOD PAIN MEDICATION, TORADOL ORDER RECEIVED, VERIFIED WITH PHARMACY THE INTERACTION PRECAUTIONS BETWEEN ANTICOAGULANTS AND TORADOL. LOWEST DOSE ORDER GIVEN. WILL CTM.
--- NOTE | 2022-04-13 04:42 | NUR ---
SHIFT SUMMARY NEW ADMIT FOR CHOLEITHIASIS, NPO AT MIDNIGHT FOR HIDA SCAN IN AM, MEDICATED FOR PAIN WITH MORPHINE PRIOR TO MIDNIGHT. MEDICATED WITH TORADOL AFTER MIDNIGHT. CONFIRMED WITH PHARMACY HEPARIN DOSE AND POSSIBLE INTERACTIONS OF TORADOL WITH HEPARIN. SPACED DOSE TO Q8. PATIENT IS ON 5L NC, THIS IS HIS BASELINE AT HOME. SATS 95 AND ABOVE. PATIENT IS ABLE TO AMBULATE W/ ASSISTANCE TO BATHROOM. FLUIDS AND ABX INFUSING. HEPARIN DRIP INFUSING TO PHARMACY ORDERS. PATIENT IS CURRENTLY RESTING COMFORTABLY, VSS, CALL LIGHT IN REACH.
[2022-04-13 05:48] LABS: Hematocrit 27.9 % (37.0-53.0); Hemoglobin 9.1 g/dL (13.5-17.5); Mean Corpuscular HGB 31.6 pg (26.0-34.0); Mean Corpuscular HGB Conc 32.6 g/dL (31.5-36.5); Mean Corpuscular Volume 97 fL (80-100); Mean Platelet Volume 10.9 fL (9.1-12.4); Platelet Count 73 K/mm3 (150-400); RDW Coefficient Variation 17.3 % (11.7-14.2); RDW Standard Deviation 61.4 fL (35.1-46.3); Red Blood Cell Count 2.88 M/mm3 (4.30-5.90); White Blood Cell Count 22.73 K/mm3 (4.00-11.30)
[2022-04-13 06:16] LABS: BAND PERCENT MAN 21 % (0-8); BASOPHILS PERCENT MAN 0 % (0-2); EOSINOPHILS PERCENT MAN 0 % (0-6); LYMPHOCYTES ABSOLUTE MAN 1.36 K/mm3 (0.84-5.20); LYMPHOCYTES PERCENT MAN 6 % (21-46); MONOCYTES ABSOLUTE MAN 3.63 K/mm3 (0.16-1.47); MONOCYTES PERCENT MAN 16 % (4-13); NEUTROPHILS ABSOLUTE MAN 17.72 K/mm3 (1.96-9.15); SEG NEUTROPHILS PERCENT MAN 57 % (41-73); TOTAL CELLS COUNTED 100
[2022-04-13 06:30] LABS: Albumin, Blood 2.6 g/dL (3.4-5.0); Albumin/Globulin Ratio 0.5 (0.8-1.8); Bilirubin, Total 1.2 mg/dL (0.1-1.0); Bun/Creatinine Ratio 22.1 (12.0-20.0); Creatinine, Blood 1.13 mg/dL (0.60-1.20); Globulin, Blood 4.8 g/dL (2.2-4.0); Magnesium, Blood 2.1 mg/dL (1.6-2.4); Potassium, Blood 4.8 mmol/L (3.5-5.5); Total Protein, Blood 7.4 g/dL (6.4-8.2)
--- NOTE | 2022-04-13 19:51 | NUR ---
BP MANAGEMENT CALLED PLACED TO Jeanette CAMACHO ABOUT PTS BP AND INCREASEING O2 NEEDS. STATED SHE WOULD PLACE ORDERS FOR FLUID BOLUS AND LABS. CALLED PLACED TO RESPIRATORY THERAPY FOR BREATHING TREATMENT. PLAN TO CALL BACK WITH FURTHER CONCERNS
--- NOTE | 2022-04-13 22:08 | NUR ---
UPDATE CALLED PLACED TO DR CAMACHO TO UPDATE ABOUT PTS CONDITION. LUNG BASES NOW HAVE LOUD CRACKLES, PT REPORTS INCREASED WOB AND SOB. SATS >90% ON 7L NC. ORDER GIVEN FOR OTD LASIX. PLAN TO CHECK BP AT 0000 AND CALL WITH FURTHER CONCERNS
--- NOTE | 2022-04-13 23:42 | NUR ---
UPDATE ANOTHER CALL PLACED TO DR CAMACHO D/T PTS RR >30 AND INCREASE O2 REQUIREMENTS TO 9L. ACCESSORRY MUSCLE USE NOTED, PT UNABLE TO COMPLETE SENTENCE D/T SOB. MINIMAL URINE OUTPUT NOTED. ORDER OBTAINED TO TRANSFER PT TO PCU 18
--- NOTE | 2022-04-14 00:09 | NUR ---
TRANSFER REPORTS GIVEN TO MIKI MCKENNA, PT TRANSFERRED TO [facility]
--- NOTE | 2022-04-14 00:22 | NUR ---
TRANSFER TO PCU REPORT RECIEVED FROM SURGICAL FLOOR RN. PATIENT TRANSFERRED TO PCU 18 WITH ALL BELONGINGS. RT AT BEDSIDE SETTING UP BIPAP. PATIENT IS ALERT AND ORIENTED, ANSWERING ALL QUESTIONS APPROPRIATELY. BIPAP SETTINGS 14/7 WITH 10L O2 BLEED IN, O2 SAT >90%. PATIENT DOES DESAT WITH MINIMAL ACTIVITY BUT QUICKLY RECOVERS. FINE CRACKLES IN BASES, OTHERWISE CLEAR T/O. PATIENT STATES HE IS BREATHING MUCH BETTER SINCE BIPAP HAS BEEN PUT ON. ALL OTHER VITALS STABLE. ORIENTED TO NEW ROOM. BED IN LOW POSITION, CALL LIGHT IN REACH.
--- NOTE | 2022-04-14 01:25 | NUR ---
UPDATE PATIENT FIDGETING IN ROOM. THIS RN AND PCT AT BEDSIDE. PATIENT BEGAN HACKING COUGHING AND GAGGING. THIS RN REMOVED BIPAP IN HOPES PATIENT WAS NOT GOING TO VOMIT IN MASK. RT AT BEDSIDE WELL. O2 SAT DROPPED DOWN TO 69% ON RA. BIPAP PLACED BACK ON PATIENT. O2 SAT CAME BACK UP TO LOW 90s. DR. HERNANDEZ AT BEDSIDE. NEW ORDERS FOR IV LASIX, CHEST XRAY AND VBG. PATIENT SITTING UP TO SIDE OF BED AT THIS TIME.
[2022-04-14 01:44] LABS: Base Excess Venous 2.3 mmol/L; PCO2 Venous 48.2 mmHg (38-42); pH Blood Venous 7.37 (7.34-7.37)
--- NOTE | 2022-04-14 06:09 | NUR ---
SHIFT SUMMARY PATIENT ALERT AND ORIENTED x4, ANSWERS ALL QUESTIONS APPROPRIATELY AND IS ABLE TO MAKE NEEDS KNOWN TO STAFF. HR AND BP STABLE, PATIENT WAS ON BIPAP 14/7 10L BLEED IN FOR MAJORITY OF TIME AFTER TRANSFER BUT IS TOLERATING BREAKS ON 10L HI FLOW. USING URINAL IN BED INDEPENDENTLY. PATIENT NPO SINCE 0000 FOR POSSIBILITY OF DRAIN PLACEMENT TODAY. NO OTHER SIGNIFICANT CHANGES SINCE TRANSFER. WILL REPORT TO DAY SHIFT RN.
--- NOTE | 2022-04-14 09:54 | NUR ---
CARE ASSUMPTION THIS RN ASSUMED CARE AT 0700. VSS. SPO2 >90% ON 6L NC. TELE PACED 70. PATIENT REPORTS NO PAIN. PATIENT REPORTS NO CHEST PAIN/PRESSURE. PATIENT REPORTS SHORTNESS OF BREATH WITH EXERTION. PATIENT IS USIING ACCESSORY MUSLES. PATIENT HAS CLEAR UPPER LOBES BILATERALLY, AND FINE DIM CRACKLES BILATERALLY LOWER LOBES. PATIENT IS ALERT AND ORIENTED X4. PATIENT ABD IS HYPOACTIVE NONTENDER AND SOFT. PATIENT SKIN IS FARGILE, CLEAN DRY AND INTACT. SEE SHIFT ASSESSMENT FOR FURTHER DETIALS. PATIENT SON UPDATED ON PATIENT CONDITION AND PLAN OF CARE. MD CHAPARROER IN TO SEE PATIENT AND UPDATE ON PLAN FOR SURGERY AND DRAIN PLACEMENT. PLAN OF CARE UP TO DATE. PATIENT INDEPDENT WITH MORNING ADLS. PATIENT DID NOT WANT TO GET UP TO SIT IN A CHAIR THIS AM. CALL LIGHT IS WITHIN REACH AND BED IN LOWEST POSITION.
--- NOTE | 2022-04-14 10:40 | NUR ---
UPDATE PATIENT SPO2 AT 5L NC AND SPO2 >90% WHEN PATIENT WENT TO STAND AT BEDSIDE, AND WAS STANDING SPO2 WENT INTO MID 80S AND THIS RN INCREASED SPO2 TO 7L NC. PATIENT GOT BACK INTO BED AND RECOVERED QUICKLY AT 7L. THIS RN WILL TITRATE OXYGEN PATIENT TOLERATES. CALL LIGHT WITHIN REACH AND BED IN LOWEST POSITION
--- NOTE | 2022-04-14 11:07 | NUR ---
UPDATE MD JENSEN IN TO SEE PATIENT AND DISCUSSED PLAN OF CARE. PATIENT MADE SURGICAL STATUS NO TELE.
[2022-04-14 13:00] LABS: International Normalized Ratio 1.37; Prothrombin Time Results 14.1 Sec (9.7-11.5)
--- NOTE | 2022-04-14 13:12 | NUR ---
PATIENT TO IMAGING PATIENT LEFT FOR A CT. PATIENT LEFT ON 6L NC ON THE PORTABLE OXYGEN. PATIENT IN NO DISTRESS WHEN LEAVING. CT WILL CALL WHEN BRINGING PATIENT BACK.
--- NOTE | 2022-04-14 13:55 | NUR ---
BACK FROM IMAGING PATIENT IS BACK FROM IMAGING. DRAIN IS IN PLACE ON RIGHT UPPER ABD DRAINING CRANBERRY COLORATION. PATIENT VITAL SIGNS ARE STABLE. PATIENT REPORTS NO PAIN. CALL LIGHT WITHIN REACH AND BED IN LOWEST POSITION
--- NOTE | 2022-04-14 14:22 | NUR ---
SHIFT SUMMARY/REPORT TO CORRECTIONAL SUBSTANCE ABUSE COUNSELOR THIS RN GAVE REPORT TO PIPPA MCKENNA AT 1405. PATIENT VITAL SIGNS ARE STABLE POST DRAIN PLACEMENT. PATIENT IS DRAINING CRANBERRY COLOR OUTPUT. PATIEN NREUO REMAINS UNCHANGED. NO ACUTE CHANGES. CALL LIGHT WITHIN REACH.
--- NOTE | 2022-04-14 18:14 | NUR ---
NO CHANGE IN CONDITION SINCE RECEIVING REPORT FROM PREVIOUS RN. PT IS ABLE TO USE CALL LIGHT FOR NEEDS, CALL LIGHT IN REACH, WILL CONTINUE TO MONITOR AND GIVE REPORT TO NOC SHIFT RN.
--- NOTE | 2022-04-15 05:29 | NUR ---
SHIFT SUMMARY PATIENT ALERT AND ORIENTED. MEDICATED PER EMAR FOR A HEAD ACHE. PATIENT HAD NO OTHER COMPLAINTS. NO ACUTE ISSUES NOTED OVERNIGHT. CALL LIGHT WITHIN REACH.
[2022-04-15 08:16] LABS: BASOPHILS ABSOLUTE AUTO 0.05 K/mm3 (0.00-0.23); BASOPHILS PERCENT AUTO 0 % (0-2); EOSINOPHILS ABSOLUTE AUTO 0.03 K/mm3 (0.00-0.68); EOSINOPHILS PERCENT AUTO 0 % (0-6); Hematocrit 27.5 % (37.0-53.0); Hemoglobin 8.9 g/dL (13.5-17.5); IMMATURE GRAN ABSOLUTE AUTO 0.11 K/mm3 (0.00-0.10); IMMATURE GRAN PERCENT AUTO 1 % (0-1); LYMPHOCYTES ABSOLUTE AUTO 1.16 K/mm3 (0.84-5.20); LYMPHOCYTES PERCENT AUTO 7 % (21-46); MONOCYTES ABSOLUTE AUTO 2.24 K/mm3 (0.16-1.47); MONOCYTES PERCENT AUTO 13 % (4-13); Mean Corpuscular HGB 31.9 pg (26.0-34.0); Mean Corpuscular HGB Conc 32.4 g/dL (31.5-36.5); Mean Corpuscular Volume 99 fL (80-100); NEUTROPHILS ABSOLUTE AUTO 13.42 K/mm3 (1.96-9.15); NEUTROPHILS PERCENT AUTO 79 % (41-73); Platelet Count 77 K/mm3 (150-400); RDW Coefficient Variation 17.5 % (11.7-14.2); RDW Standard Deviation 63.2 fL (35.1-46.3); Red Blood Cell Count 2.79 M/mm3 (4.30-5.90); White Blood Cell Count 17.01 K/mm3 (4.00-11.30)
[2022-04-15 08:38] LABS: Albumin, Blood 2.3 g/dL (3.4-5.0); Albumin/Globulin Ratio 0.5 (0.8-1.8); Bilirubin, Total 1.6 mg/dL (0.1-1.0); Calcium, Blood 9.4 mg/dL (8.5-10.1); Creatinine, Blood 0.97 mg/dL (0.60-1.20); Potassium, Blood 3.8 mmol/L (3.5-5.5); Total Protein, Blood 7.3 g/dL (6.4-8.2)
--- NOTE | 2022-04-15 09:42 | NUR ---
Assumed care of patient at approx 0900. Pt resting in bed, on bedrest. Alert, oriented X4, calm and cooperative with care. Pt reports pain to back and neck, previously given tylenol with positive results. Pt sob at rest, breathing even but labored, Spo2 on 9L o2 via high flow nc. Pt denies chest pain, nausea, dizziness at rest and numb/tingling at this time. No tele, heart sound regularly, regular, bp stable. Abd soft, tender with palpation, drain to right sife with hypoactive bowel tones, no bm since 04/12/22, prune juice provided. No other acute changes noted. Will continue to monitor.
--- NOTE | 2022-04-15 19:00 | NUR ---
Shift Summary Pt up to 9l o2 o2 via high flow nc, titrated down to 7l o2 via nc. No other acute changes noted. Will continue to monitor until report given to oncoming rn.
--- NOTE | 2022-04-16 05:53 | NUR ---
SHIFT SUMMARY PATIENT ALERT AND ORIENTED X4. HAD NO COMPLAINTS OF PAIN. WAS EXTREMELY SHORT OF BREATH WITH EXERTION. THE PATIENT DESATS EASILY WITH MOVEMENT AND NEEDS EXTENDED TIME TO RECOVER. PATIENT HAD INCREASED OXYGEN NEEDS OVERNIGHT, IS CURRENTLY ON 8 LITERS O2 VIA NASAL CANULA, PATIENT'S BASELINE IS 5 LITERS. NO OTHER ISSUES NOTED OVERNIGHT. CALL LIGHT WITHIN REACH.
[2022-04-16 07:24] LABS: BASOPHILS ABSOLUTE AUTO 0.05 K/mm3 (0.00-0.23); BASOPHILS PERCENT AUTO 0 % (0-2); EOSINOPHILS ABSOLUTE AUTO 0.02 K/mm3 (0.00-0.68); EOSINOPHILS PERCENT AUTO 0 % (0-6); Hematocrit 28.2 % (37.0-53.0); Hemoglobin 9.1 g/dL (13.5-17.5); IMMATURE GRAN ABSOLUTE AUTO 0.08 K/mm3 (0.00-0.10); IMMATURE GRAN PERCENT AUTO 1 % (0-1); LYMPHOCYTES ABSOLUTE AUTO 0.86 K/mm3 (0.84-5.20); LYMPHOCYTES PERCENT AUTO 6 % (21-46); MONOCYTES ABSOLUTE AUTO 1.98 K/mm3 (0.16-1.47); MONOCYTES PERCENT AUTO 13 % (4-13); Mean Corpuscular HGB 31.4 pg (26.0-34.0); Mean Corpuscular HGB Conc 32.3 g/dL (31.5-36.5); Mean Corpuscular Volume 97 fL (80-100); Mean Platelet Volume 11.5 fL (9.1-12.4); NEUTROPHILS ABSOLUTE AUTO 11.83 K/mm3 (1.96-9.15); NEUTROPHILS PERCENT AUTO 80 % (41-73); Platelet Count 88 K/mm3 (150-400); RDW Coefficient Variation 17.4 % (11.7-14.2); RDW Standard Deviation 61.4 fL (35.1-46.3); White Blood Cell Count 14.82 K/mm3 (4.00-11.30)
[2022-04-16 07:28] LABS: Albumin, Blood 2.3 g/dL (3.4-5.0); Albumin/Globulin Ratio 0.5 (0.8-1.8); Bun/Creatinine Ratio 34.1 (12.0-20.0); Calcium, Blood 9.3 mg/dL (8.5-10.1); Globulin, Blood 4.8 g/dL (2.2-4.0); Potassium, Blood 4.4 mmol/L (3.5-5.5); Total Protein, Blood 7.1 g/dL (6.4-8.2)
--- NOTE | 2022-04-16 10:16 | NUR ---
AM NOTE PT ALERT, ORIENTED X4; CALM AND COOPERATIVE WITH CARE. PT RESTING IN BED, UP TO BSC WITH SBA. SPO2 >90% ON 8L O2 VIA NC AT REST, TITRATED UP WITH ACTIVITY, SEVERAL MINUTES FOR RECOVERY. PT DENIES PAIN, CHEST PAIN/PRESSURE, NAUSEA, DIZZINESS AND NUMB/TINGLING. NO TELE, BP STABLE. ABD SOFT, TENDER, NORMOACTIVE BT, DRAIN TO RIGHT SIDE, SEROSANGINOUS FLUIDS NOTED. OTHER VSS. NO OTHER ACUTE CHANGES NOTED. WILL CONTINUE TO MONITOR.
[2022-04-16 11:18] LABS: Hematocrit 29.8 % (37.0-53.0); Hemoglobin 9.5 g/dL (13.5-17.5); Mean Platelet Volume 11.2 fL (9.1-12.4); Platelet Count 98 K/mm3 (150-400)
--- NOTE | 2022-04-16 17:59 | NUR ---
Shift Summary Pt on 9l o2 via nc currently, titrated between 7-10l t/o shift for work of breathing and spo2. Pt contiunes on heparin gtt per order, discussed with Dr Orlando, no new orders. Other vss. No other acute changes noted. Will continue to monitor.
--- NOTE | 2022-04-17 05:46 | NUR ---
SHIFT SUMMARY PATIENT ALERT AND ORIENTED X4. MEDICATED PER EMAR FOR RIGHT UPPER ABDOMINAL PAIN. DOES REPORT SOME CHEST TIGHTNESS DUE TO SHORTNESS OF BREATH. PATIENT CONTINUES TO HAVE INCREASED OXYGEN NEEDS AND DESATS WITH EXERTION. PATIENT ON 8-10 LITERS O2 VIA NASAL CANULA OVERNIGHT. PATIENT REPORTS FEELING TIRED AND DISCOURAGED HE HASN'T BEEN ABLE TO GET MUCH SLEEP DURING THIS HOSPITAL STAY. HE DOES NOT TAKE SLEEP AIDES AT HOME AND DIDN'T HAVE ANYTHING TO HELP HIM SLEEP ORDERED. DR HERNANDEZ ORDERED MELATONIN TO HELP THE PATIENT SLEEP. PATIENT REPORTS THAT HE STILL DID NOT SLEEP WELL OVERNIGHT. CALL LIGHT WITHIN REACH.
[2022-04-17 06:16] LABS: Hemoglobin 8.7 g/dL (13.5-17.5); Platelet Count 94 K/mm3 (150-400)
[2022-04-17 07:21] LABS: BASOPHILS ABSOLUTE AUTO 0.05 K/mm3 (0.00-0.23); BASOPHILS PERCENT AUTO 1 % (0-2); EOSINOPHILS ABSOLUTE AUTO 0.03 K/mm3 (0.00-0.68); EOSINOPHILS PERCENT AUTO 0 % (0-6); Hematocrit 27.1 % (37.0-53.0); Hemoglobin 8.7 g/dL (13.5-17.5); IMMATURE GRAN ABSOLUTE AUTO 0.04 K/mm3 (0.00-0.10); IMMATURE GRAN PERCENT AUTO 1 % (0-1); LYMPHOCYTES ABSOLUTE AUTO 1.04 K/mm3 (0.84-5.20); LYMPHOCYTES PERCENT AUTO 13 % (21-46); MONOCYTES ABSOLUTE AUTO 2.49 K/mm3 (0.16-1.47); MONOCYTES PERCENT AUTO 32 % (4-13); Mean Corpuscular HGB 31.4 pg (26.0-34.0); Mean Corpuscular HGB Conc 32.1 g/dL (31.5-36.5); Mean Corpuscular Volume 98 fL (80-100); Mean Platelet Volume 11.2 fL (9.1-12.4); NEUTROPHILS ABSOLUTE AUTO 4.18 K/mm3 (1.96-9.15); NEUTROPHILS PERCENT AUTO 53 % (41-73); Platelet Count 95 K/mm3 (150-400); RDW Coefficient Variation 17.7 % (11.7-14.2); RDW Standard Deviation 63.6 fL (35.1-46.3); Red Blood Cell Count 2.77 M/mm3 (4.30-5.90); White Blood Cell Count 7.83 K/mm3 (4.00-11.30)
[2022-04-17 07:29] LABS: Albumin, Blood 2.4 g/dL (3.4-5.0); Albumin/Globulin Ratio 0.5 (0.8-1.8); Bun/Creatinine Ratio 33.1 (12.0-20.0); Calcium, Blood 9.5 mg/dL (8.5-10.1); Globulin, Blood 4.5 g/dL (2.2-4.0); Potassium, Blood 4.6 mmol/L (3.5-5.5); Total Protein, Blood 6.9 g/dL (6.4-8.2)
[2022-04-17 11:51] LABS: Bicarbonate Venous 20.2 mmol/L (24.0-30.0); PCO2 Venous 42.9 mmHg (38-42); pH Blood Venous 7.31 (7.34-7.37)
--- NOTE | 2022-04-17 14:25 | NUR ---
TRANSFER OF CARE - LATE NOTE Pt alert, oriented x4; calm and cooperative with care. Pt resting in bed. Pt denies pain, chest pain/pressure, nausea, dizziness and numb/tingling. Pt sob at rest, breahting shallow, tachypnic, ls coarse, dim to bases. Pt started this am 9l o2 via nc, pt had coughing episode and desaturated to 60's for approx 10 minutes, placed on 15l o2 via high flow and nonrebreather, recovered, then had another episode, recovered, at this time pt unable to keep saturations >88%, discussed options with patient, agreed to bipap, notified Dr and Rt. Pt on bipap for majority of shift. Placed back on tele paced, bp stable. No other acute changes noted. Report given to janette Mohr assuming care of patient.
[2022-04-18 05:39] LABS: Hematocrit 27.5 % (37.0-53.0); Hemoglobin 8.7 g/dL (13.5-17.5); Mean Platelet Volume 10.5 fL (9.1-12.4); Platelet Count 100 K/mm3 (150-400)
--- NOTE | 2022-04-18 05:45 | NUR ---
SHIFT SUMMARY PT IS A&OX4, NEEDS MODERATE ASSISTANCE FOR MOVING AROUND IN BED, MINIMAL ASSISTANCE FOR TX TO THE BSC, USES THE URINAL IND IN BED, AND KNOWS WHEN HE HAS TO HAVE A BOWEL MOVEMENT. PT HAS A BRYON DRAIN THAT IS DRAINING W/O ISSUE. SITE IS W/O PAIN, AND HAS A DRESSING INTACT. PT DID HAVE SOME TENDERNESS AROUND THE SITE WHEN MOVING AROUND IN BED. WITH ACTIVITY THE PT DESATURATES FAIRLY QUICK AND IF HIS NASAL CANNULA SLIPS OUT OF HIS NOSE, HIS SP02 DROPS AND HE BECOMES MORE SOB. PT HAS BEEN ON 7-10L ON THE NC T/O THE SHIFT TO MAINTAIN SP02 >90%. PT HAS A PACEMAKER PACING AROUND 60 BPM AND HE DENIES ANGINA OR CHEST PRESSURE. THIS AM THE PT WAS C/O SOME NAUSEA, AND WANTED TO TAKE HIS ORAL ZOFRAN. HE IS NOW FEELING BETTER. HIS BED IS IN LOW, THREE SIDE RAILS ARE UP, AND HIS CALL LIGHT IS IN REACH. WILL CONTINUE TO MONITOR UNTIL SHIFT REPORT IS GIVEN TO THE ONCOMING SHIFT RN. SEE NOTES FOR ANY UPDATES.
[2022-04-18 07:49] LABS: BASOPHILS ABSOLUTE AUTO 0.07 K/mm3 (0.00-0.23); BASOPHILS PERCENT AUTO 1 % (0-2); EOSINOPHILS PERCENT AUTO 1 % (0-6); Hematocrit 27.6 % (37.0-53.0); Hemoglobin 8.8 g/dL (13.5-17.5); IMMATURE GRAN ABSOLUTE AUTO 0.11 K/mm3 (0.00-0.10); IMMATURE GRAN PERCENT AUTO 1 % (0-1); LYMPHOCYTES ABSOLUTE AUTO 1.27 K/mm3 (0.84-5.20); LYMPHOCYTES PERCENT AUTO 16 % (21-46); MONOCYTES ABSOLUTE AUTO 1.26 K/mm3 (0.16-1.47); MONOCYTES PERCENT AUTO 15 % (4-13); Mean Corpuscular HGB 31.3 pg (26.0-34.0); Mean Corpuscular HGB Conc 31.9 g/dL (31.5-36.5); Mean Corpuscular Volume 98 fL (80-100); Mean Platelet Volume 11.1 fL (9.1-12.4); NEUTROPHILS ABSOLUTE AUTO 5.37 K/mm3 (1.96-9.15); NEUTROPHILS PERCENT AUTO 66 % (41-73); Platelet Count 110 K/mm3 (150-400); RDW Coefficient Variation 17.7 % (11.7-14.2); RDW Standard Deviation 63.1 fL (35.1-46.3); Red Blood Cell Count 2.81 M/mm3 (4.30-5.90); White Blood Cell Count 8.18 K/mm3 (4.00-11.30)
[2022-04-18 07:54] LABS: Magnesium, Blood 2.1 mg/dL (1.6-2.4)
[2022-04-18 08:07] LABS: Alanine Aminotransfer (ALT/SGP 19 U/L (12-78); Albumin, Blood 2.4 g/dL (3.4-5.0); Albumin/Globulin Ratio 0.5 (0.8-1.8); Alk Phos 93 U/L (50-136); Anion Gap Unable to Calculate mmol/L (6-16); Aspartate Aminotrans (AST/SGOT 14 U/L (12-37); Bilirubin, Total 0.9 mg/dL (0.1-1.0); Blood Urea Nitrogen 31 mg/dL (8-24); Bun/Creatinine Ratio 29.2 (12.0-20.0); CO2, Blood 37 mmol/L (21-32); Calcium, Blood 9.5 mg/dL (8.5-10.1); Chloride, Blood 107 mmol/L (98-108); Creatinine, Blood 1.06 mg/dL (0.60-1.20); Globulin, Blood 4.9 g/dL (2.2-4.0); Glomerular Filtration Rate 69 (60-); Glucose, Blood 122 mg/dL (70-99); Potassium, Blood 3.9 mmol/L (3.5-5.5); Sodium, Blood 141 mmol/L (136-145); Total Protein, Blood 7.3 g/dL (6.4-8.2)
[2022-04-18 08:31] LABS: Base Excess Venous 10.2 mmol/L; Bicarbonate Venous 32.7 mmol/L (24.0-30.0); PCO2 Venous 55.9 mmHg (38-42)
--- NOTE | 2022-04-18 08:46 | NUR ---
Assumed Care Pt sitting up in bed, alert and orientened. Pt allowed this student nurse to work with him today. Pt is on 8L nasal cannula. Able to have conversation. no signs of respiratorty distress. Pt complains of lower abdominal pain with food intake. No complaintrs of pain around the drain site. Drain site clean and in place. no sutures nboted at this time. Draining rust colored fluid into the drainage bag. Pt pale in color but overall skin clean, dry and intact. no signs of edema. VSS. all needs met at this time, call light in reach.
--- NOTE | 2022-04-18 09:56 | NUR ---
UPDATE PT. UP IN CHAIR WITH PT, O2 STATS DROPPED INTO THE 80S BUT RECOVERED WELL ON 10L NC NOW. HEPARIN GTT D/C AND PT. TRANSITIONED TO [facility] PER DR BROWN
--- NOTE | 2022-04-18 16:47 | NUR ---
CALL TO DR. FAY REGARDING SECOND DOSE OF LASIX PUSH. PT HAD POOR RESPONSE TO INTIAL DOSE, WITH SMALL AMOUNTS OF DARK TEA COLORED URINE. PT. ALSO HAS VERY POOR ORAL INTAKE AT THIS TIME. PER DR. FAY HOLD THIS PM DOSE OF IV LASIX.
--- NOTE | 2022-04-18 17:38 | NUR ---
SHIFT SUMMARY PT ALER AND ORIENTED THOUGH SHIFT. PT UP IN CHAIR BREIFLY. NEEDED TO BE TITRTED UP TP 12L NC WHILE UP. TITRATED BACK DOWN TO 10L WHILE RESTING COMFORTABLY IN BED. PT GOT UP TO COMMADE AND NEEDED TITRATED AGIN UP TO 12L THEN BACK DOWN TO 10L WHEN IN BED. PT REMAINED CONT OF BOWEL AND BLADDER THOUGHOUT SHIFT. URINAL USED WITH LOW OUTPUT AND TEA COLORED URINE. VSS THROUGHOUT SHIFT. REPROT TO ONCOMING NURSE.
--- NOTE | 2022-04-19 04:50 | NUR ---
SHIFT SUMMARY PT IS A&OX4, HAS BEEN BETWEEN 7-11L ON NC TO KEEP SPO2 >90%, 1P SBA TO THE BSC, USES THE URINAL IND IN BED, ON TELE HIS HR HAS BEEN 60-70 BPM PACED, AND HE HAS NEEDED Q2 HELP REPOSITIONING. THE PT'S BIGGEST COMPLAINT WAS HIS CHRONIC BACK PAIN SO AN EGG CRATE WAS PLACED ON THE BED, HE WAS GIVEN A HEATING PAD, AND HE HAS BEEN REPOSTIONED AT LEAST EVERY TWO HOURS. THE PT HAS DENIED ANGINA ALL SHIFT, BUT DOES COMPLAIN OF FATIGUE AND SOB W/ ACTIVITY. HE CALLS APPROPRIATELY, HAS THE BED IN A LOW POSITION, AND HIS CALL LIGHT IS IN REACH. WILL CONTINUE TO MONITOR UNTIL SHIFT REPORT IS GIVEN TO THE ONCOMING SHIFT RN. SEE NOTES FOR ANY UPDATES.
[2022-04-19 06:01] LABS: Hematocrit 26.8 % (37.0-53.0); Hemoglobin 8.6 g/dL (13.5-17.5); Mean Corpuscular HGB 31.4 pg (26.0-34.0); Mean Corpuscular HGB Conc 32.1 g/dL (31.5-36.5); Mean Corpuscular Volume 98 fL (80-100); NRBC ABSOLUTE 0.03 K/mm3 (0.00-0.02); NRBC Auto 0.3 /100 WBC (0.0-0.2); Platelet Count 106 K/mm3 (150-400); RDW Coefficient Variation 18.1 % (11.7-14.2); RDW Standard Deviation 63.7 fL (35.1-46.3); Red Blood Cell Count 2.74 M/mm3 (4.30-5.90); White Blood Cell Count 10.19 K/mm3 (4.00-11.30)
[2022-04-19 06:20] LABS: Alanine Aminotransfer (ALT/SGP 21 U/L (12-78); Albumin, Blood 2.5 g/dL (3.4-5.0); Albumin/Globulin Ratio 0.5 (0.8-1.8); Alk Phos 92 U/L (50-136); Anion Gap Unable to Calculate mmol/L (6-16); Aspartate Aminotrans (AST/SGOT 19 U/L (12-37); Bilirubin, Total 1.1 mg/dL (0.1-1.0); Blood Urea Nitrogen 25 mg/dL (8-24); Bun/Creatinine Ratio 22.9 (12.0-20.0); CO2, Blood 37 mmol/L (21-32); Calcium, Blood 9.6 mg/dL (8.5-10.1); Chloride, Blood 106 mmol/L (98-108); Creatinine, Blood 1.09 mg/dL (0.60-1.20); Globulin, Blood 4.6 g/dL (2.2-4.0); Glomerular Filtration Rate 67 (60-); Glucose, Blood 98 mg/dL (70-99); Potassium, Blood 3.7 mmol/L (3.5-5.5); Sodium, Blood 142 mmol/L (136-145); Total Protein, Blood 7.1 g/dL (6.4-8.2)
[2022-04-19 06:25] LABS: BAND PERCENT MAN 18 % (0-8); BASOPHILS PERCENT MAN 0 % (0-2); EOSINOPHILS PERCENT MAN 1 % (0-6); LYMPHOCYTES ABSOLUTE MAN 1.52 K/mm3 (0.84-5.20); LYMPHOCYTES PERCENT MAN 15 % (21-46); METAMYELOCYTE PERCENT MAN 5 % (0-0); MONOCYTES PERCENT MAN 2 % (4-13); MYELOCYTE PERCENT MAN 4 % (0-0); NEUTROPHILS ABSOLUTE MAN 7.43 K/mm3 (1.96-9.15); SEG NEUTROPHILS PERCENT MAN 55 % (41-73); TOTAL CELLS COUNTED 100
--- NOTE | 2022-04-19 18:10 | NUR ---
SHIFT SUMMARY PT A/O X4, PLEASANT AND COOPERATIVE. PT ON TELE AND PACED. HR IN THE 60'S-70'S. PT ON HIGH FLOW NC, TITRATED BETWEEN 9-15L T/O SHIFT. PT DESATING WITH ANY EXERTION QUICKLY TO THE 70'S. TAKING APPROX 10 MINUTES RECOVER AFTER ANY ACTIVITY. PT HAS TO HAVE HOB ELEVATED IN ORDER TO MAINTAIN SATURATION. PT HAD ECHO PERFORMED TODAY. DR BARRAGAN WAS AT BEDSIDE AND PLACE SUTURES IN URICEL DRAIN. CONDOM CATH PLACED ON PT DUE TO FREQUENCY AND PT O2. PT ON 9L HF NC AND TOLERATES WELL WHILE AT REST, SPO2 >90%. PT HAD BREATHING TREATMENT DONE THIS MORNING AND STATES IT HELPED SIGNIFICANTLY WITH THE TIGHTNESS IN HIS CHEST. WILL CONTINUE TO CARE FOR PT AND REPORT TO ENTERPRISE DATA ARCHITECT RN.
--- NOTE | 2022-04-19 22:35 | NUR ---
PT HAS BEEN DESATURATING T/O THE NIGHT AND HAS HAD TO BE TITRAITED UP ON O2 TO 14. HE HAS NEEDED THE NON-REBREATHER TO HELP RECOVER WELL. PT AGREED TO TRY THE BIPAP FOR A FEW TO HELP EASE HIS WORK OF BREATHING. HE IS NOW BEDREST DUE TO OXYGEN DEMAND AND NOT BEING ABLE TO RECOVER. ALSO, PT WAS MEDICATED WITH MORPHINE DUE TO BACK PAIN. SEE NOTES FOR MORE UPDATES.
--- NOTE | 2022-04-19 23:54 | NUR ---
ASSUMPTION OF CARE THIS RN RECEIVED REPORT FROM MILLICENT MCKENNA AND ASSUMED CARE OF PATIENT AT 2300. PATIENT WAS MEDICATED FOR PAIN AND PLACED ON BIPAP PRIOR TO THIS RN ASSUMING CARE. PATIENT APPEARS TO BE RESTING COMFORTABLY. VITALS STABLE. REMAINS ON BIPAP 12/6 70% FIO2. PATIENT BEING REPOSITIONED Q2HRS AND PRN. THIN RUST COLORED DRAINAGE NOTED IN URESIL BAG. BED IN LOWEST POSITION AND CALL LIGHT WITHIN REACH.
[2022-04-20 03:49] LABS: Hematocrit 26.6 % (37.0-53.0); Hemoglobin 8.4 g/dL (13.5-17.5); Mean Corpuscular HGB 31.1 pg (26.0-34.0); Mean Corpuscular HGB Conc 31.6 g/dL (31.5-36.5); Mean Corpuscular Volume 99 fL (80-100); Mean Platelet Volume 10.7 fL (9.1-12.4); NRBC ABSOLUTE 0.03 K/mm3 (0.00-0.02); NRBC Auto 0.3 /100 WBC (0.0-0.2); Platelet Count 108 K/mm3 (150-400); RDW Coefficient Variation 18.1 % (11.7-14.2); RDW Standard Deviation 62.8 fL (35.1-46.3); White Blood Cell Count 10.56 K/mm3 (4.00-11.30)
[2022-04-20 04:08] LABS: Albumin, Blood 2.4 g/dL (3.4-5.0); Albumin/Globulin Ratio 0.5 (0.8-1.8); Bilirubin, Total 0.9 mg/dL (0.1-1.0); Bun/Creatinine Ratio 22.3 (12.0-20.0); Calcium, Blood 9.1 mg/dL (8.5-10.1); Creatinine, Blood 0.85 mg/dL (0.60-1.20); Globulin, Blood 4.4 g/dL (2.2-4.0); Potassium, Blood 3.7 mmol/L (3.5-5.5); Total Protein, Blood 6.8 g/dL (6.4-8.2)
[2022-04-20 04:13] LABS: BAND PERCENT MAN 16 % (0-8); BASOPHILS PERCENT MAN 1 % (0-2); EOSINOPHILS PERCENT MAN 1 % (0-6); LYMPHOCYTES ABSOLUTE MAN 1.79 K/mm3 (0.84-5.20); LYMPHOCYTES PERCENT MAN 17 % (21-46); METAMYELOCYTE ABSOLUTE MAN 0.52 K/mm3 (0.00-0.00); METAMYELOCYTE PERCENT MAN 5 % (0-0); MONOCYTES ABSOLUTE MAN 1.58 K/mm3 (0.16-1.47); MONOCYTES PERCENT MAN 15 % (4-13); MYELOCYTE ABSOLUTE MAN 0.31 K/mm3 (0.00-0.00); MYELOCYTE PERCENT MAN 3 % (0-0); NEUTROPHILS ABSOLUTE MAN 6.12 K/mm3 (1.96-9.15); SEG NEUTROPHILS PERCENT MAN 42 % (41-73); TOTAL CELLS COUNTED 100
--- NOTE | 2022-04-20 04:36 | NUR ---
SHIFT SUMMARY PATIENT REQUIRING BIPAP MOST OF THE NIGHT WITH SETTINGS OF 12/6 AND 70% FIO2. PATIENT IS ONLY TOLERATING BIPAP FOR 1-2 HOURS AND THEN ASKING FOR A 1-2 HOUR BREAK. WHILE OFF THE BIPAP PATIENT IS REQUIRING 9-13L O2 VIA HFNC. PATIENT DESATTING QUICKLY WITH MILD ACTIVITY SUCH DRINKING WATER OR USING URINAL IN BED; TACHYPNEA AND LABORED BREATHING NOTED AT REST. OTHER VSS. AV PACED 60'S. PATIENT IS ALERT AND ORIENTED FULLY. ABLE TO MAKE NEEDS KNOWN. 300MLS OF RUST COLORED DRAINAGE FROM BILLIARY DRAIN. REPOSITIONING Q2HRS AND PRN. BED IN LOWEST POSITION AND CALL LIGHT WITHIN REACH. THIS RN WILL CONTINUE TO MONITOR UNTIL SHIFT CHANGE AT 0700.
--- NOTE | 2022-04-20 05:51 | NUR ---
PATIENT UPDATE THIS RN TO PATIENT'S ROOM DUE TO DESATTING ALARM. UPON ENTERING THE ROOM THIS RN NOTED THAT PATIENTS SPO2 WAS QUICKLY DECREASING FROM 80% TO 68%. RR 36-44. PATIENT NOTED TO BE IN TRIPOD POSITION IN BED WITH ACCESSORY MUSCLE USE. PATIENT QUICKLY PLACED BACK ON BIPAP AND SET TO 100% FIO2. PATIENT RECOVERED AFTER 1-2 MINUTES AND SPO2 BACK TO 90'S. OTHER VSS AT THIS TIME. BED IN LOWEST POSITION AND CALL LIGHT WITHIN REACH.
--- NOTE | 2022-04-20 11:08 | NUR ---
Spoke with aluminum boat inspector Nicole and discussed case. Pt may benefit from advanced care planning and code status discussion. Spoke with Dr Orlando and discussed case. 82 year old male admitted to the hospital for Cholesystitis with Cholelithiasis. Pt's medical history and comorbidities include: Systolic CHF, Pulmonary Fibrosis, Afib, HTN, Hyperlipidemia, GERD, and Gout. Pt's O2 requirements have increased and is now on AIRVO. Pt resting in bed and reports tolerable 3/10 pain in his abdomen. Pt appears dyspneic as evidenced by respiratory rate and work of breathing. Offered therapeutic listening as Pt reports not being and has 3 adult children that live with him. He reports at baseline having the ability of ambulating around the house independently, dressing independently and bathing independently. He does reports struggling a little with bathing. Pt reports no voodoo beliefs. He reports Pk Huerta as his PCP. Engaged in therapeutic conversation regarding advanced care planning. Educated on disease process including trajectory. Discussed the importance of planning for the future and having routine conversations with PCP as disease progresses. Discussed code status wishes. Educated on life sustaining treatments including risks and consequences to CPR/Intubation. Pt reports wishes are to remain a full code. Continued supportive conversation. Spoke with Primary BALA Scott and discussed case. Palliative Care will remain available for supportive and therapeutic visits.
[2022-04-20 17:59] LABS: Hematocrit 28.2 % (37.0-53.0); Hemoglobin 8.8 g/dL (13.5-17.5)
--- NOTE | 2022-04-20 18:05 | NUR ---
SHIFT SUMMARY PT A/O X4, COOPERATIVE AND PLEASANT. PT AV PACED ON TELE, RATE IN THE 60'S. PT BILIARY URISIL DRAIN IN RLQ THAT IS DRAINING DARK BROWN FLUID. PT WAS PUT ON HF NC THIS MORNING FOR BREAKFAST AND WAS DESATING TO THE MID 80'S ON 15L. RT SWITCHED PT TO AIRVO AND HE IS TOLERATING WELL AT 45LPM AND 55% FIO2. O2 SAT BETWEEN 90-94% AT REST WITH THIS. PT STILL DESATING TO THE LOW 80'S WITH ACTIVITY, BUT ABLE TO RECOVER WITH BRIEF 100% FIO2. PT EXPRESSED LIKING THE AIRVO BETTER THAN THE BIPAP AND IS TOLERATING WELL. CRACKLES STILL PRESENT IN BASES. AFTER 60MG IV LASIX TODAY, THE PT HAD SIGNIFICANT URINE OUTPUT. CONDOM CATH WAS PLACED TO HELP PT WITH FREQUENCY. PT HAD 3 EPISODES OF HEMOPTYSIS TODAY. DR VILLATORO WAS NOTIFIED. PLAN TO HOLD PT ANTI COAGULANT AND ORDER CHEST XRAY IF IT OCCURS AGAIN TODAY, THIS WOULD BE AN INCREASE IN FREQUENCY. THE PT REPORTED TO DR VILLATORO THAT THIS HAD BEEN HAPPENING FOR APPROX 1 MONTH. PT WAS TURNED Q2H. PT DENIED ANY PAIN THAT DIDN'T RESOLVE WITH REPOSITIONING. WILL CONTINUE TO CARE FOR PT AND REPORT TO ONCOMING RN.
--- NOTE | 2022-04-20 22:34 | NUR ---
PT HAVING EPISODE OF BLOODY NOSE ON THE AIRVO. PCT ASSISTED PT WITH CLEANING HIS NOSE BUT PT DESATURATED INTO THE 70S WITHOUT THE AIRVO IN PLACE. PT RETURNS TO HIGH 90S WITH 100% FIO2.
[2022-04-21 03:31] LABS: Hematocrit 26.6 % (37.0-53.0); Hemoglobin 8.5 g/dL (13.5-17.5); Mean Corpuscular HGB 31.4 pg (26.0-34.0); Mean Corpuscular Volume 98 fL (80-100); Mean Platelet Volume 10.3 fL (9.1-12.4); NRBC ABSOLUTE 0.02 K/mm3 (0.00-0.02); NRBC Auto 0.2 /100 WBC (0.0-0.2); Platelet Count 113 K/mm3 (150-400); RDW Coefficient Variation 18.6 % (11.7-14.2); RDW Standard Deviation 62.5 fL (35.1-46.3); Red Blood Cell Count 2.71 M/mm3 (4.30-5.90); White Blood Cell Count 10.46 K/mm3 (4.00-11.30)
[2022-04-21 04:01] LABS: Alanine Aminotransfer (ALT/SGP 26 U/L (12-78); Albumin, Blood 2.5 g/dL (3.4-5.0); Albumin/Globulin Ratio 0.6 (0.8-1.8); Alk Phos 81 U/L (50-136); Anion Gap 0 mmol/L (6-16); Aspartate Aminotrans (AST/SGOT 23 U/L (12-37); Blood Urea Nitrogen 18 mg/dL (8-24); Bun/Creatinine Ratio 21.5 (12.0-20.0); CO2, Blood 41 mmol/L (21-32); Calcium, Blood 9.3 mg/dL (8.5-10.1); Chloride, Blood 100 mmol/L (98-108); Creatinine, Blood 0.84 mg/dL (0.60-1.20); Globulin, Blood 4.4 g/dL (2.2-4.0); Glomerular Filtration Rate 86 (60-); Glucose, Blood 102 mg/dL (70-99); Potassium, Blood 3.4 mmol/L (3.5-5.5); Sodium, Blood 141 mmol/L (136-145); Total Protein, Blood 6.9 g/dL (6.4-8.2)
[2022-04-21 04:44] LABS: BAND PERCENT MAN 10 % (0-8); BASOPHILS PERCENT MAN 2 % (0-2); EOSINOPHILS ABSOLUTE MAN 0.31 K/mm3 (0.00-0.68); EOSINOPHILS PERCENT MAN 3 % (0-6); LYMPHOCYTES ABSOLUTE MAN 1.56 K/mm3 (0.84-5.20); LYMPHOCYTES PERCENT MAN 15 % (21-46); MONOCYTES ABSOLUTE MAN 1.25 K/mm3 (0.16-1.47); MONOCYTES PERCENT MAN 12 % (4-13); NEUTROPHILS ABSOLUTE MAN 7.11 K/mm3 (1.96-9.15); SEG NEUTROPHILS PERCENT MAN 58 % (41-73); TOTAL CELLS COUNTED 100
--- NOTE | 2022-04-21 04:52 | NUR ---
PT CONTINUING TO HAVE DRIPPING NOSEBLEED. ATTEMPTED TO STOP NOSEBLEED WITH PRESSURE, ICE PACK, AND PACKING WITH NO SUCCESS. PT REPORTS THAT THE BLOOD IS RUNNING DOWN THE BACK OF HIS THROAT. CONTACTED DR BORJAS WHO WILL BE HERE TO ASSESS THE PT.
--- NOTE | 2022-04-21 06:39 | NUR ---
TILLER WORKER SUMMARY ASSUMED CARE OF THE PT AT 1900. HE IS ALERT AND ORIENTED X4. CONDOM CATH IN PLACE AND PATENT. URESIL DRAIN TO THE RUQ WITHOUT SIGNS OF INFECTION. DRAINING PROPERLY. PT ON AIRVO ALL SHIFT AT 45L AND 60%. HE BEGAN TO HAVE A NOSEBLEED INTERMITTENTLY THROUGHOUT THE SHIFT THAT WORSENED THIS MORNING - GIVEN AFRIN SPRAY WITH IMPROVEMENT PACKING AND PRESSURE DID NOT HELP. PT SATTING MID 90S WITH THE AIRVO IN HIS MOUTH AT THIS TIME. HE HAS BEEN AV PACED IN THE 60S ON TELE. PT REFUSING MOST POSITION CHANGES DUE TO "POSITION OF COMFORT" OBTAINED. HE WAS MEDICATED X1 WITH TYLENOL FOR PAIN AND X1 WITH MORPHINE FOR PAIN AND TO ASSIST WITH SLEEP. PT REPORTS VERY LITTLE SLEEP AT BASELINE. CHEST XR ORDERED THIS MORNING DUE TO PT COUGHING UP BLOOD AND UNSURE IF FROM NOSEBLEED OR LUNGS.
--- NOTE | 2022-04-21 07:20 | NUR ---
ASSUMED CARE: PT RESTING QUIETLY AT THIS TIME. ON AIRVO AT 45L AND 60% FIO2. PACED AT 60 ON TELE. NIGHT RN REPORTED NOSE BLEED BUT SEEMS TO BE RESOLVED AT THIS TIME. NO ACUTE DISTRESS AT PRESENT.
--- NOTE | 2022-04-21 11:30 | NUR ---
Brief supportive visit this AM. Pt resting in bed and remains on AIRVO. Pt's son Kieran at bedside. Received verbal permission from Pt to relay information that this RN discussed yesterday with son Kieran. Relayed information regarding advanced care planning and risk involved with CPR/Intubation. Offered therapeutic listeing and answered questions. Pt and family express appreciation. Spoke with Dr Orlando, Primary RN Ashley, and discussed case. Palliative Care will remain available.
--- NOTE | 2022-04-21 18:27 | NUR ---
SHIFT SUMMARY: DR FAY STATES PLAN WITH PT IS TO CONTINUE DIURESIS PRIOR TO GETTING PULMONOLOGY CONSULT. DISCUSSED THIS WITH PT'S SON. PT REMAINS ON AIRVO 45L, 60% FIO2. URISIL DRAIN IN PLACE WITH BROWN DRAINAGE. CONDOM CATH IN PLACE. NO NOSE BLEEDS THIS SHIFT. NO ACUTE NEEDS AT THIS TIME.
--- NOTE | 2022-04-21 22:05 | NUR ---
ASSUMED CARE AT 1900 PT LAYING IN BED WATCHING TV AT SHIFT CHANGE. HE IS A/O X4 AND ABLE TO MAKE HIS NEEDS KNOWN; GENERALIZED WEAKNESS NOTED. ON AIRVO AT 30L; FIO2 50%; OCCATIONALLY DESAT'S WITH EXERTION. HR 60'S; PACED. BP STABLE. TOLERATING PO INTAKE WELL. CONDOM CATH IN PLACE. URISIL DRAIN TO RT FLANK IN PLACE; DRESSING C/D/I; SKIN AROUND SITE SHOWS NO SIGNS OF REDNESS OR INFLAMATION. SEE SHIFT ASSESSMENT FOR FULL ASSESSMENT.
--- NOTE | 2022-04-22 05:07 | NUR ---
END OF SHIFT SUMMARY NO ACUTE EVENTS OVERNIGHT. PT ONLY SLEPT FOR A FEW HOURS AT A TIME, CHALLENGING FOR HIM TO GET COMFORTALBE, HE IS NOT ABLE TO LAY DOWN FLAT BECAUSE HE THEN HAS TROUBLE BREATHING. HE CONT TO BE A/O X4 AND ABLE TO MAKE HIS NEEDS KNOWN. CONT TO BE PACED WITH RATE 60'S; BP STABLE. RT FLANK DRAIN IN PLACE WITH SMALL AMOUNT OF OUTPUT; DRESSING C/D/I. CONDOM CATH CONT TO BE IN PLACE. WILL REPORT TO AM RN WHEN AVAILABLE.
--- NOTE | 2022-04-22 07:17 | NUR ---
ASSUMED CARE: PT RESTING QUIETLY AT THIS TIME, ON AIRVO 30L, 57% PER RT TITRATION. PACED AT 60 ON TELE. URISIL DRAIN AT BEDSIDE WITH BROWN/YELLOW DRAINAGE. NO ACUTE NEEDS OR CONCERNS AT THIS TIME.
--- NOTE | 2022-04-22 10:00 | NUR ---
DR HENNING CAME TO BEDSIDE TO DISCUSS PLANS FOR PATIENT WITH PT AND HIS SON. CALL TO PALLIATIVE CARE NURSE WHO STATES SHE WILL COME DISCUSS WITH STAFF LATER TODAY.
--- NOTE | 2022-04-22 16:30 | NUR ---
Met with Adeel this afternoon after nursing requested a PC visit for pt. Spoke with Dr. Cottrell prior to visiting with pt. Pt made the decision to make himself a DNR this morning. He is currently on airvo and becomes very SOB with any exertion. 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 Allowed Adeel to tell me about his life, his work, his four boys (three of whom he lives with or very near to) one lives in [place]. He was about 10 years ago. He reports that over the past 15-18 years he has noticed more difficulty with his breathing. 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 He reports that he is able to feed himself and to shave, brush his teeth and get dressed. His sons share the responsibility of shopping for groceries, meal prep, cleaning and laundry. Reviewed his understanding of the DNR band on his wrist. He explained that he can still receive treatments but if his heart stops or he stops breathing that he will not be resusitated. Asked him if he had done any advanced care planning. He states that he has thought a little bit about the end, but he states he doesn't like to think about it. He has not talked with sons about his wishes. Brought up the different options of continued treatment vs. focusing on comfort and considering comfort care and hospice. Explained hospice and the services that are available with hospice. He states he is interested in some information about hospice. He states he will think about what his wishes. He states his son will be in tomorrow after work and he is willing to have a PC RN come back to discuss the options and answer any questions they may have. PC will plan to meet with pt/son tomorrow for continued advanced care planning.
--- NOTE | 2022-04-22 17:50 | NUR ---
SHIFT SUMMARY: DR HENNING SPOKE WITH PT AND SON REGARDING PLAN AND STATUS WELL ASKING ABOUT CODE STATUS. PALLIATIVE CARE NURSE CAME TO BEDSIDE TO DISCUSS CODE STATUS WELL ASSESSING PT'S UNDERSTANDING OF HOSPICE AND PALLIATIVE CARE SERVICES. PT DECIDED TO BE DNR WHEN HE UNDERSTOOD THAT IT ONLY MEANS TREATMENT WILL STOP WHEN . REMAINS ON AIRVO AT 35L, 60% FIO2 AND DESATURATES WITH ANY ACTIVITY, INCLUDING BOOSTING IN BED.
[2022-04-23 04:01] LABS: Hematocrit 28.6 % (37.0-53.0); Mean Corpuscular HGB 30.8 pg (26.0-34.0); Mean Corpuscular HGB Conc 31.5 g/dL (31.5-36.5); Mean Corpuscular Volume 98 fL (80-100); Mean Platelet Volume 10.5 fL (9.1-12.4); Platelet Count 120 K/mm3 (150-400); RDW Standard Deviation 63.7 fL (35.1-46.3); Red Blood Cell Count 2.92 M/mm3 (4.30-5.90); White Blood Cell Count 11.26 K/mm3 (4.00-11.30)
[2022-04-23 04:29] LABS: Albumin, Blood 2.5 g/dL (3.4-5.0); Albumin/Globulin Ratio 0.5 (0.8-1.8); Bilirubin, Total 1.1 mg/dL (0.1-1.0); Bun/Creatinine Ratio 21.7 (12.0-20.0); Calcium, Blood 9.3 mg/dL (8.5-10.1); Creatinine, Blood 0.74 mg/dL (0.60-1.20); Globulin, Blood 4.7 g/dL (2.2-4.0); Phosphorus, Blood 2.2 mg/dL (2.5-4.9); Potassium, Blood 3.4 mmol/L (3.5-5.5); Total Protein, Blood 7.2 g/dL (6.4-8.2)
--- NOTE | 2022-04-23 04:43 | NUR ---
SHIFT SUMMARY PT A&Ox4, CALLS AND COMMUNICATES NEEDS APPROPRIATELY. BP STABLE, 100% AV PACED 60'S, DENIES CP/PRESSURE. PT ON AIRVO 25L/50% FiO2, SpO2> 92% AT REST. PT DESATURATES TO MID 80's WITH ANY ACTIVITY, RECOVERS QUICKLY WITH THE 100% FiO2 FOR 2 MINUTES. PT DENIES SOB. BILI DRAIN PATENT, 100mls OF OUTPUT THIS SHIFT. PT HAD MILD ABDOMINAL DISCOMFORT THIS SHIFT, MEDICATED PER EMAR AND PROVIDED REPOSITIONING. CONDOM CATH REMAINS IN PLACE, PATENT AND DRAINING TO GRAVITY. NO BM THIS SHIFT. NO OTHER EVENTS, WILL REPORT TO ONCOMING RN.
[2022-04-23 05:34] LABS: BASOPHILS PERCENT MAN 0 % (0-2); EOSINOPHILS ABSOLUTE MAN 0.22 K/mm3 (0.00-0.68); EOSINOPHILS PERCENT MAN 2 % (0-6); LYMPHOCYTES ABSOLUTE MAN 1.23 K/mm3 (0.84-5.20); LYMPHOCYTES PERCENT MAN 11 % (21-46); MONOCYTES ABSOLUTE MAN 0.33 K/mm3 (0.16-1.47); MONOCYTES PERCENT MAN 3 % (4-13); SEG NEUTROPHILS PERCENT MAN 71 % (41-73); TOTAL CELLS COUNTED 100
[2022-04-23 05:35] LABS: BAND PERCENT MAN 9 % (0-8); MYELOCYTE ABSOLUTE MAN 0.45 K/mm3 (0.00-0.00); MYELOCYTE PERCENT MAN 4 % (0-0)
--- NOTE | 2022-04-23 08:18 | NUR ---
Pt is alert, oriented and appropriate in conversation. Dr. Cottrell was just here to see the patient. Pt shakes his head when I asked how he is doing. Asked why, he responds that he is having lower abdominal pain every time that he eats, and also headache on the back of his head and neck. Declined Tylenol at this time. Asked for coffee, which was given to him. Spo2 92% on airvo at 25 l/min and 45% fio2; Desasaturation to 89-90% while sitting up, eating. Miralax orders received.
--- NOTE | 2022-04-23 09:25 | NUR ---
Up to bedside commode; stated that he needed to have a BM. Hypoxia to 81% during the activity.
--- NOTE | 2022-04-23 09:45 | NUR ---
Pt had a BM; says that his abdomen feels better now. Used the walker to get back into bed, and is brushing his teeth now. No further c/o discomfort at this time. SPo2 recoverd to 97% just a few minutes after the activity.
--- NOTE | 2022-04-23 12:18 | NUR ---
Pt was educated on the use of the incentive spirometery, and demonstrated its use correctly,
--- NOTE | 2022-04-23 13:10 | NUR ---
Spo2 noted 100% on 60% Fio2. FiO2 decreased to 45% as it was this morning, and spo2 remains above 95%. Pt is awake, alert, and states that he has no needs at this time.
--- NOTE | 2022-04-23 16:03 | NUR ---
Pt states that his pain in his abdomen feels better this afternoon. States he has been doing leg exercises in bed, and incentive spirometery.
--- NOTE | 2022-04-23 17:01 | NUR ---
While sitting in bed, talking or doing paperwork with his son, spo2 drops to 83-85% and stayed 85-86% for 5-10 minutes while the pt was resting in bed, inactive. The pt did not realize that his oxygen level was so low. He was given 100% fio2 and 60 seconds later his oxygen levels recovered.
[2022-04-24 04:56] LABS: Albumin, Blood 2.5 g/dL (3.4-5.0); Anion Gap 5 mmol/L (6-16); Blood Urea Nitrogen 17 mg/dL (8-24); Bun/Creatinine Ratio 20.9 (12.0-20.0); CO2, Blood 36 mmol/L (21-32); Calcium, Blood 9.2 mg/dL (8.5-10.1); Chloride, Blood 95 mmol/L (98-108); Creatinine, Blood 0.81 mg/dL (0.60-1.20); Glomerular Filtration Rate 87 (60-); Glucose, Blood 108 mg/dL (70-99); Phosphorus, Blood 2.4 mg/dL (2.5-4.9); Potassium, Blood 3.5 mmol/L (3.5-5.5); Sodium, Blood 136 mmol/L (136-145)
--- NOTE | 2022-04-24 05:17 | NUR ---
SHIFT SUMMARY PT A&Ox4, CALLS AND COMMUNICATES NEEDS APPROPRIATELY. BP STABLE, 100% AV PACED 60'S, DENIES CP/PRESSURE. PT ON AIRVO 25L/45% FiO2, SpO2> 92% AT REST. PT DESATURATES TO MID 80's WITH ANY ACTIVITY, RECOVERS QUICKLY WITH THE 100% FiO2 FOR 2 MINUTES. PT DENIES SOB. BILI DRAIN PATENT, 150mls OF OUTPUT THIS SHIFT. PT HAD MILD ABDOMINAL DISCOMFORT THIS SHIFT, NOTIFIED PHYSICIAN, ORDERS PLACED AND MEDICATED PER EMAR. CONDOM CATH REMAINS IN PLACE, PATENT AND DRAINING TO GRAVITY. NO BM THIS SHIFT. NO OTHER EVENTS, WILL REPORT TO ONCOMING RN.
--- NOTE | 2022-04-24 07:19 | NUR ---
Pt states that his foot pain is manageable this morning; yesterday he told me that pain 5/10 was good for him. Both lower legs elevated on pillows and pt was repositioned in the bed to his comfort. Now he is complaining that his left hip is very painful, as well as his back. NO bruising, no swelling, no hematoma noted at the right groin site, nor on his flanks bilaterally. Heparin gtt verified at bedside report with BALA Hector. Vital signs are stable. Heart rate 63 bpm, blood pressure 123/102. Spo2 95% on room air. Pt was repositioned to his left side slightly and he says it helped.
--- NOTE | 2022-04-24 07:50 | NUR ---
pt alert, states he is having lower abdominal and lower back pain. Repositioned and given a cup of coffee, and he states it is improved. Spo2 drops to low 80s with minimal activity such as eating, repositioning, and even conversation. At present he is on 7 l/min oxygen delivery and spo2 is holding at 92-93% while he is drinking coffee.
--- NOTE | 2022-04-24 10:12 | NUR ---
Joint visit with Dr Cottrell. Pt resting in bed upon arrival. Dr Cottrell reviews plan of care and has further discussion regarding hospice. Pt reports being in agreement with hospice. This RN remained behind and answered questions regarding hospice services. Discussed hospice agencies to choose from. Pt reports plan to discuss options with son later today. Spoke with RN Zeeshan Velarde and discussed case. Palliative Care will remain available.
--- NOTE | 2022-04-24 12:15 | NUR ---
Pt states that he really can't eat much; states that it makes his abdomen hurt.
--- NOTE | 2022-04-24 14:16 | NUR ---
Pt helped up to the bedside commode; unable to pass any stool. Sponge bath was given. Linen changed. Pt needed to have oxygen at 13 l/min during the activity in order to keep his spo2 above 90%, but once at rest he was able to be weaned back down to 7-9 l/min.
--- NOTE | 2022-04-24 15:39 | NUR ---
Pt's son states that they have chosen [facility].
--- NOTE | 2022-04-24 16:08 | NUR ---
Pt resting in bed with son at bedside. Son Kieran reports they have elected [facility]. Son does request a 10 L oxygen concentrator be delivered to the house. Offerd therapeutic listening and answered questions. Pt has son sign choice signature form. Charted choice in [facility]. Placed signature form in Pt's paper chart. Relayed request for 10 L O2 conentrator and Pt's hospice choice to RN Zeeshan Velarde. Palliative Care will remain available
--- NOTE | 2022-04-24 23:00 | NUR ---
TRANSFER TO MEDICAL 331 PT A&Ox4, CALLS AND COMMUNICATES NEEDS APPROPRIATELY. BP STABLE, 100% AV PACED 60'S, DENIES CP/PRESSURE. Sp02> 92% ON 5-11L VIA NC, REPORTS SOB WITH ACTIVITY. BILI DRAIN PATENT. PT HAD MILD ABDOMINAL DISCOMFORT THIS SHIFT, ADMINISTERED BOWEL CARE PER EMAR. BEDBATH GIVEN, LINENS CHANGED, CONDOM CATH CHANGED.PT RESTING COMFORTABLY. PT TRANSFERED TO MEDICAL FLOOR ROOM 331 BY CLINICAL STAFF WITH ALL BELONGINGS AT APPROXIMATELY 2300.
--- NOTE | 2022-04-24 23:56 | NUR ---
PATIENT TRANSFER FROM PCU 18. ALERT AND ORIENTED. ON 9L O2 NC. BILIARY DRAIN PRESENT RIGHT SIDE. REPORT TAKEN. PERSONAL BELONGINGS WITH PATIENT.
--- NOTE | 2022-04-25 05:31 | NUR ---
SHIFT SUMMARY PATIENT WAS PCU 18 TRANSFER. AXOX 4 AND TWO ASSIST TO BSC. CONDOM CATH IN PLACE AND DRAINING TO GRAVITY. PIVS REMAIN INTACT. BILIARY DRAIN RIGHT SIDE PATENT AND DRAINING. ON 9L O2 HIGH FLOW. SOB W/EXERTION. DENIES CHEST PAIN AND N/V. VSS/AFEBRILE. REPORTED MILD ABDOMEN PAIN. CALL LIGHT IN REACH. BED IN LOWEST POSITION. WILL CONTINUE TO MONITOR UNTIL DAY SHIFT NURSE ASSUMES CARE.
[2022-04-25] MEDS ORDERED: QUET25 PO (09:39)
--- NOTE | 2022-04-25 09:49 | NUR ---
pt laying in bed, states last night was the best he slept in a long time, lungs are clear in upper judge dim in bases, resp even and unlabored at rest, becomes dyspnic with activity, currently on 9 liters 02 via high flow cannula, hrr, pacer, no edema noted, ppp+2, cap refill <3sec, vs stable, afebrile, iv site is clear and patent, btx4, abd flat soft having some pain in llq, and in back, medicate with tramadol, patten cath draining ada urine, also has a biliary drain to right side, draining brown/bucio fluid, skin has pink bottom otherwise c/w/d, maew, general weakness, river. will be going home on hospice today. call light in reach.
--- NOTE | 2022-04-25 10:16 | NUR ---
pt iv's were removed intact, packed up and moved to [facility] from bed, left patten as he is going on hospice, and biliary drain, left with all his belongings with transport, packet given to them.
== END 2022-04-25 10:18 | disposition hospice, home (50) | DRG 871 ==
LOC: ER 05:52 → SURS 13:05 → MEDS 13:05 → PCU 13:05 → SURS 14:53 → PCU 04-14 00:03 → MEDS 04-24 22:55
PROVIDERS: Emergency Medicine; Family Medicine; Internal Medicine; Surgery; ADMIT Internal Medicine
PROC: 3E03329 Introduction of Other Anti-infective into Peripheral Vein, Percutaneous Approach (ICD-10-PCS; 2022-04-12)
PROC: 0F9430Z Drainage of Gallbladder with Drainage Device, Percutaneous Approach (ICD-10-PCS; principal; 2022-04-14)
DX: A41.9 Sepsis, unspecified organism (principal); I50.23 Acute on chronic systolic (congestive) heart failure; J96.21 Acute and chronic respiratory failure with hypoxia; K80.00 Calculus of gallbladder with acute cholecystitis without obstruction; J98.11 Atelectasis; Z51.5 Encounter for palliative care; K21.9 Gastro-esophageal reflux disease without esophagitis; K44.9 Diaphragmatic hernia without obstruction or gangrene; I48.91 Unspecified atrial fibrillation; E78.2 Mixed hyperlipidemia; I35.0 Nonrheumatic aortic (valve) stenosis; I27.21 Secondary pulmonary arterial hypertension; I11.0 Hypertensive heart disease with heart failure; J84.112 Idiopathic pulmonary fibrosis; M10.9 Gout, unspecified; M85.80 Other specified disorders of bone density and structure, unspecified site; I25.10 Atherosclerotic heart disease of native coronary artery without angina pectoris; Z95.0 Presence of cardiac pacemaker; Z90.49 Acquired absence of other specified parts of digestive tract; Z98.42 Cataract extraction status, left eye; Z95.4 Presence of other heart-valve replacement; Z87.891 Personal history of nicotine dependence; Z88.8 Allergy status to other drugs, medicaments and biological substances; Z79.51 Long term (current) use of inhaled steroids; Z79.01 Long term (current) use of anticoagulants; Z79.899 Other long term (current) drug therapy
CPT/HCPCS: 36415; 49405; 71045; 71046; 71260; 74160; 76705; 78226; 80053; 80069; 80162; 82803; 83605; 83690; 83735; 83880; 84100; 84145; 84484; 85014; 85018; 85025; 85049; 85379; 85610; 85730; 87040; 87070; 87075; 87205; 93005; 93010; 93306; 94640; 94660; 94664; 94760; 94762; 96365-59; 96375; 96376; 97110; 97163; 97530; 99285-25; A9270; A9537; C9113; J1170; J1644; J1885; J1940; J2270; J2543; J3010; J7030; J7050; J7060; Q9967